=== PATIENT | female | born 1960 | race Caucasian/White ===

== ENCOUNTER → 2017-07-04 | Outpatient (REF) | payer OTHER, MEDICAID ==
[2017-07-04 14:18] LABS: ALBUMIN 3.4 GM/DL (3.2-5.2); ALBUMIN/GLOBULIN RATIO 0.87 (1.00-1.93); ALKALINE PHOSPHATASE 58 U/L (45-117); ALT/SGPT 22 U/L (12-78); ANION GAP 8 MEQ/L (8-16); AST/SGOT 14 U/L (7-37); BILIRUBIN,TOTAL 0.8 MG/DL (0.2-1.0); BLOOD UREA NITROGEN 16 MG/DL (7-18); CALCIUM LEVEL 8.7 MG/DL (8.5-10.1); CARBON DIOXIDE LEVEL 24 MEQ/L (21-32); CHLORIDE LEVEL 108 MEQ/L (98-107); CHOLESTEROL LEVEL 190 MG/DL (<200); CHOLESTEROL RISK RATIO 3.958 (<5); CREATININE FOR GFR 0.86 MG/DL (0.55-1.02); GLOMERULAR FILTRATION RATE > 60.0 (>51); GLUCOSE, FASTING 288 MG/DL (70-105); HDL CHOLESTEROL 48 MG/DL (>40); NON-HDL-C 142 MG/DL; POTASSIUM SERUM 4.2 MEQ/L (3.5-5.1); SODIUM LEVEL 140 MEQ/L (136-145); THYROID STIMULATING HORMONE 0.474 uIU/ML (0.358-3.740); TOTAL PROTEIN 7.3 GM/DL (6.4-8.2); TRIGLYCERIDES LEVEL 150 MG/DL (<150)
[2017-07-04 14:56] LABS: ESTIMATED AVERAGE GLUCOSE 269 MG/DL (60-110)
== END ==
LOC: M LAB REF 13:23
DX: E11.9 Type 2 diabetes mellitus without complications (principal); E55.9 Vitamin D deficiency, unspecified

== ENCOUNTER 2017-08-09 10:19 | Emergency (ER) | payer OTHER, MEDICAID ==
[2017-08-09] MEDS: LIDOCAINE 1% MDV 20ML VIAL SC (11:44)
== END 2017-08-09 12:30 | disposition home or self-care (01) ==
LOC: M ED 10:19
DX: L02.31 Cutaneous abscess of buttock (principal); J45.909 Unspecified asthma, uncomplicated; E11.9 Type 2 diabetes mellitus without complications; E78.00 Pure hypercholesterolemia, unspecified; Z79.899 Other long term (current) drug therapy; Z79.82 Long term (current) use of aspirin; Z79.4 Long term (current) use of insulin; Z88.0 Allergy status to penicillin; Z88.1 Allergy status to other antibiotic agents; Z88.2 Allergy status to sulfonamides; Z88.5 Allergy status to narcotic agent; F17.210 Nicotine dependence, cigarettes, uncomplicated
CPT/HCPCS: 87186

== ENCOUNTER → 2017-11-30 | Outpatient (REF) | payer OTHER, MEDICAID ==
[2017-11-30 19:02] LABS: ESTIMATED AVERAGE GLUCOSE 237 MG/DL (60-110); HEMOGLOBIN A1c 9.9 %
[2017-11-30 19:07] LABS: ALBUMIN 3.6 GM/DL (3.2-5.2); ALKALINE PHOSPHATASE 66 U/L (45-117); ALT/SGPT 21 U/L (12-78); ANION GAP 7 MEQ/L (8-16); AST/SGOT 9 U/L (7-37); BILIRUBIN,TOTAL 0.8 MG/DL (0.2-1.0); BLOOD UREA NITROGEN 11 MG/DL (7-18); CALCIUM LEVEL 8.6 MG/DL (8.5-10.1); CARBON DIOXIDE LEVEL 24 MEQ/L (21-32); CHLORIDE LEVEL 110 MEQ/L (98-107); CHOLESTEROL LEVEL 185 MG/DL (<200); CHOLESTEROL RISK RATIO 4.625 (<5); CREATININE FOR GFR 0.88 MG/DL (0.55-1.30); GLOMERULAR FILTRATION RATE > 60.0 (>51); GLUCOSE, FASTING 268 MG/DL (70-100); HDL CHOLESTEROL 40 MG/DL (>40); LDL CHOLESTEROL 122.2 MG/DL (<100); NON-HDL-C 145 MG/DL; POTASSIUM SERUM 3.8 MEQ/L (3.5-5.1); SODIUM LEVEL 141 MEQ/L (136-145); THYROID STIMULATING HORMONE 0.627 uIU/ML (0.358-3.740); TOTAL PROTEIN 7.2 GM/DL (6.4-8.2); TRIGLYCERIDES LEVEL 114 MG/DL (<150)
== END ==
LOC: M LAB REF 17:53
DX: E11.9 Type 2 diabetes mellitus without complications (principal)

== ENCOUNTER → 2018-03-11 | Outpatient (CLI) | payer OTHER ==
[2018-03-11 11:05] LABS: HEPATITIS B SURFACE ANTIBODY NEGATIVE (POSITIVE)
[2018-03-11 11:15] LABS: HEPATITIS B SURFACE ANTIGEN NEGATIVE (NEGATIVE)
[2018-03-11 11:44] LABS: HEPATITIS C VIRUS ABY INDEX 0.1 INDEX (<0.8)
[2018-03-11 15:03] LABS: ALBUMIN 3.5 GM/DL (3.2-5.2); ALKALINE PHOSPHATASE 63 U/L (45-117); ALT/SGPT 21 U/L (12-78); ANION GAP 8 MEQ/L (8-16); AST/SGOT 15 U/L (7-37); BILIRUBIN,TOTAL 0.5 MG/DL (0.2-1.0); BLOOD UREA NITROGEN 18 MG/DL (7-18); CALCIUM LEVEL 9.3 MG/DL (8.5-10.1); CARBON DIOXIDE LEVEL 26 MEQ/L (21-32); CHLORIDE LEVEL 112 MEQ/L (98-107); GLOMERULAR FILTRATION RATE > 60.0 (>51); GLUCOSE, FASTING 101 MG/DL (70-100); POTASSIUM SERUM 4.3 MEQ/L (3.5-5.1); SODIUM LEVEL 146 MEQ/L (136-145); TOTAL PROTEIN 7.1 GM/DL (6.4-8.2); TRIGLYCERIDES LEVEL 103 MG/DL (<150)
[2018-03-11 17:01] LABS: CHOLESTEROL LEVEL 172 MG/DL (<200); CHOLESTEROL RISK RATIO 3.245 (<5); HDL CHOLESTEROL 53 MG/DL (>40); LDL CHOLESTEROL 98.4 MG/DL (<100); NON-HDL-C 119 MG/DL
[2018-03-11 17:02] LABS: ALBUMIN/GLOBULIN RATIO 0.97 (1.00-1.93)
[2018-03-11 17:22] LABS: THYROID STIMULATING HORMONE 0.744 uIU/ML (0.358-3.740)
== END ==
LOC: M LAB 09:42
DX: Z00.00 Encounter for general adult medical examination without abnormal findings (principal); E11.9 Type 2 diabetes mellitus without complications
CPT/HCPCS: 84443

== ENCOUNTER → 2018-03-14 | Outpatient (CLI) | payer OTHER | LOC: M WHC 07:59 | DX: Z12.31 Encounter for screening mammogram for malignant neoplasm of breast (principal) | CPT/HCPCS: 77067 ==

== ENCOUNTER 2018-04-11 11:25 | Emergency (ER) | payer OTHER ==
[2018-04-11] MEDS: ALBUTEROL SULFATE 2.5 MG/0.5 ML INH NEB SOLN NEB ×2 (13:03)
== END 2018-04-11 13:45 | disposition home or self-care (01) ==
LOC: M ED 11:25
DX: J45.901 Unspecified asthma with (acute) exacerbation (principal); E11.9 Type 2 diabetes mellitus without complications; K21.9 Gastro-esophageal reflux disease without esophagitis; F33.9 Major depressive disorder, recurrent, unspecified; F41.9 Anxiety disorder, unspecified; Z88.5 Allergy status to narcotic agent; Z88.1 Allergy status to other antibiotic agents; Z88.0 Allergy status to penicillin; Z88.2 Allergy status to sulfonamides; Z79.899 Other long term (current) drug therapy; Z79.82 Long term (current) use of aspirin; Z79.84 Long term (current) use of oral hypoglycemic drugs
CPT/HCPCS: 71046

== ENCOUNTER 2018-05-03 05:21 | Emergency (ER) | payer OTHER | END 2018-05-03 07:54 | disposition home or self-care (01) | LOC: M ED 05:21 | DX: J00 Acute nasopharyngitis [common cold] (principal); E11.9 Type 2 diabetes mellitus without complications; E78.00 Pure hypercholesterolemia, unspecified; J45.909 Unspecified asthma, uncomplicated; K21.9 Gastro-esophageal reflux disease without esophagitis; F41.9 Anxiety disorder, unspecified; F31.9 Bipolar disorder, unspecified; Z72.0 Tobacco use; Z79.82 Long term (current) use of aspirin; Z79.84 Long term (current) use of oral hypoglycemic drugs; Z79.899 Other long term (current) drug therapy; Z88.5 Allergy status to narcotic agent; Z88.0 Allergy status to penicillin; Z88.2 Allergy status to sulfonamides; Z88.1 Allergy status to other antibiotic agents | CPT/HCPCS: 87880 ==

== ENCOUNTER 2018-06-17 07:48 | Day surgery (SDC) | payer OTHER ==
[~2018-06-17] VITALS: Ht 160 cm; Wt 89.8 kg
[~2018-06-17 07:48] MED LIST: ADV250INH; ALBU83IN NEB; ASPI81TA52 PO; ATOR40TA75 PO; BASA100I SQ; BREO1INH INH; CLEO300C2 PO; CLON-412 PO; CYCL10TA PO; DOXY100C37 PO; FLON1SPR NARES; GABA-1171 PO; MAGICMW MT; METF10004 PO; METO1TAB87 PO; NALT50TA4; NEBUMIS2 XX; OMEP20CA3 PO; PRED20TA PO; ROPI0.5T PO; SERT25TA88 PO; TRAZ-160 PO; VENTAER
[2018-06-17] MEDS ORDERED: NS 1,000 ML IV ONE (08:30)
[2018-06-17] MEDS ORDERED: LIDOCAINE 2% INJ 100 MG/5 ML SDV (FOR ANES.) As Ordered ONE (09:26)
[2018-06-17] MEDS ORDERED: PROPOFOL 200 MG/20 ML VIAL As Ordered ONE (09:26)
--- NOTE | 2018-06-17 09:31 | ROOR ---
Patient Name: Marychuy Russell Procedure Date: 06/17/2018 9:14 AM Date of : 1960 Age: 57 Room: [facility] Gender: Female Note Status: Finalized Procedure: Colonoscopy Indications: Screening for colorectal malignant neoplasm Providers: Juan CASTANEDA MD Referring MD: Chester GIFFORD MD Requesting Provider: Medicines: Monitored Anesthesia Care Complications: No immediate complications. Procedure: Pre-Anesthesia Assessment: - The heart rate, respiratory rate, oxygen saturations, blood pressure, adequacy of pulmonary ventilation, and response to care were monitored throughout the procedure. The Colonoscope was introduced through the anus and advanced to the cecum, identified by appendiceal orifice and ileocecal valve. The colonoscopy was performed without difficulty. The patient tolerated the procedure well. The quality of the bowel preparation was adequate. Findings: The perianal and digital rectal examinations were normal. Mild sigmoid diverticulosis and moderate internal hemorrhoids. The entire examined colon appeared normal on direct and retroflexion views. Retroflexion in the right colon was performed. Impression: - Mild sigmoid diverticulosis and moderate internal hemorrhoids. - The entire colon is otherwise normal on direct and retroflexion views. - No specimens collected. Recommendation: - Repeat colonoscopy in 10 years for screening purposes. Juan Castaneda MD Juan CASTANEDA MD 06/17/2018 9:31:32 AM This report has been signed electronically. Number of Addenda: 0 Note Initiated On: 06/17/2018 9:14 AM Estimated Blood Loss: Estimated blood loss: none.
[2018-06-17 09:50] VITALS: BP 120/62
== END 2018-06-17 09:57 | disposition home or self-care (01) ==
LOC: M OPP 07:48
PROVIDERS: ATTEND Internal Medicine Gastroenterology
DX: K57.30 Diverticulosis of large intestine without perforation or abscess without bleeding (principal); K64.8 Other hemorrhoids; Z12.11 Encounter for screening for malignant neoplasm of colon

== ENCOUNTER → 2018-11-06 | Outpatient (REF) | payer OTHER ==
[2018-11-06 11:16] LABS: CHOLESTEROL RISK RATIO 4.244 (<5)
[2018-11-06 11:32] LABS: CREATININE, URINE 79.3 MG/DL; MAU/CREAT RATIO 8.8 MCG/MG (0.0-30.0)
[2018-11-06 11:44] LABS: HEMOGLOBIN A1c 9.8 %
== END ==
LOC: M SFHCPLAZ 08:33
PROVIDERS: ATTEND Family Medicine
DX: E11.8 Type 2 diabetes mellitus with unspecified complications (principal)

== ENCOUNTER 2018-11-12 15:01 | Emergency (ER) | payer OTHER ==
[~2018-11-12] VITALS: Ht 157.5 cm; Wt 90.9 kg
[2018-11-12] MEDS ORDERED: SERT-138 (15:09)
[2018-11-12] MEDS ORDERED: OMEP-218 (15:09)
[2018-11-12] MEDS ORDERED: SIMV40TA2 (15:09)
[2018-11-12] MEDS ORDERED: CYCL10TA (15:09)
[2018-11-12] MEDS ORDERED: IBUPROFEN 600 MG TAB PO ONE (16:00)
[2018-11-12 16:41] VITALS: BP 141/85
--- NOTE | 2018-11-12 17:04 | REP ---
CT ORBITS WITHOUT CONTRAST: HISTORY: Trauma. The globes, optic nerves and rectus muscles are normal in appearance. There is a focal area of dehiscence in the medial wall of the right orbit. There is no orbital lesion. The visualized sinuses are clear. There is no fracture. Minimal soft-tissue swelling is present overlying the right orbit and nasal bones. IMPRESSION:There is no orbital lesion. Electronically Signed by Xiang Waters MD 11/13/2018 08:12 A
== END 2018-11-12 16:54 | disposition home or self-care (01) ==
LOC: M ED 15:01
DX: S01.81XA Laceration without foreign body of other part of head, initial encounter (principal); S00.11XA Contusion of right eyelid and periocular area, initial encounter; W01.0XXA Fall on same level from slipping, tripping and stumbling without subsequent striking against object, initial encounter; Y92.240 Courthouse as the place of occurrence of the external cause; E11.9 Type 2 diabetes mellitus without complications; Z79.899 Other long term (current) drug therapy; Z79.4 Long term (current) use of insulin; Z88.0 Allergy status to penicillin; Z88.1 Allergy status to other antibiotic agents; Z88.2 Allergy status to sulfonamides; Z88.5 Allergy status to narcotic agent; F17.210 Nicotine dependence, cigarettes, uncomplicated

== ENCOUNTER → 2018-12-20 | Outpatient (CLI) | payer OTHER ==
[~2018-12-20] MED LIST changes: +CYCL10TA; +MUCI600T31; +OMEP-218; +PRED10TA2; +SERT-138; +SIMV40TA2; -TRAZ-160 PO; +TRAZ-252 PO
--- NOTE | 2018-12-20 11:37 | REP ---
PELVIC ULTRASOUND: Real-time sonographic evaluation of the pelvis performed utilizing transabdominal and endovaginal technique. The bladder measures 5.2 x 3.5 x 4.5 cm. Uterus measures 5.8 x 2.1 x 2.2 cm. Endometrium is quite ill-defined and difficult to measure. Junctional zone is not well visualized. Best estimate of endometrial thickness is 3-5 mm. There is no endometrial fluid collection. Ovaries appear normal in size and echotexture, right ovary measuring 1.2 x 0.6 x 1.0 cm and left ovary 1.6 x 1.2 x 1.4 cm. There is no adnexal mass or free fluid. IMPRESSION: Ill-defined endometrium, borders are not well visualized, nor is the junctional zone. Best estimate at endometrial thickness is between 3 and 5 mm. There is no endometrial fluid collection. Findings could indicate adenomyosis. Other underlying neoplasm cannot be excluded. Consider endometrial sampling. Electronically Signed by Gasper Clemons MD 12/20/2018 12:08 P
== END ==
LOC: M RAD 10:06
PROVIDERS: ATTEND Student in an Organized Health Care Education/Training Program
DX: N95.0 Postmenopausal bleeding (principal)

== ENCOUNTER → 2018-12-20 | Outpatient (REF) | payer OTHER ==
[2018-12-20 14:49] LABS: CHLAMYDIA DNA AMPLIFICATION NEGATIVE (NEGATIVE); GC DNA AMPLIFICATION NEGATIVE (NEGATIVE)
== END ==
LOC: M SFHCPLAZ 11:40
PROVIDERS: ATTEND Student in an Organized Health Care Education/Training Program
DX: N76.0 Acute vaginitis (principal)

== ENCOUNTER 2018-12-23 14:56 | Emergency (ER) | payer OTHER ==
[~2018-12-23] VITALS: Ht 157.5 cm; Wt 90.0 kg
[~2018-12-23 14:56] MED LIST changes: -MUCI600T31; -PRED10TA2
[2018-12-23] MEDS ORDERED: PRED10TA2 (15:07)
[2018-12-23] MEDS ORDERED: MUCI600T31 (15:07)
[2018-12-23 15:46] LABS: BASO # 0.1 10^3/uL (0.0-0.2); BASO % 0.4 % (0.0-1.0); EOS # 0.1 10^3/uL (0.0-0.50); EOS % 0.7 % (0.0-3.0); HEMATOCRIT 44.1 % (36.0-47.0); LYMPH # 3.7 10^3/uL (1.5-4.5); LYMPH % 25.5 % (24.0-44.0); MEAN CORPUSCULAR HEMOGLOBIN 30.9 pg (27.0-33.0); MEAN CORPUSCULAR VOLUME 90.7 fl (80.0-96.0); MONO # 0.9 10^3/uL (0.0-0.8); MONO % 5.9 % (0.0-5.0); NEUTROPHILS # 9.7 10^3/uL (1.8-7.7); NEUTROPHILS % 66.9 % (36.0-66.0); PLATELET COUNT, AUTOMATED 178 10^3/uL (150-450); RED BLOOD COUNT 4.86 10^6/uL (4.00-5.40); WHITE BLOOD COUNT 14.5 10^3/uL (4.0-10.0)
[2018-12-23 16:19] LABS: CALCIUM LEVEL 8.5 MG/DL (8.5-10.1); CREATININE FOR GFR 1.05 MG/DL (0.55-1.30); GLOMERULAR FILTRATION RATE 57.3 (>51); POTASSIUM SERUM 3.6 MEQ/L (3.5-5.1)
--- NOTE | 2018-12-23 16:27 | REP ---
Duplex extremity venous ultrasound: Right lower extremity. History: Right leg pain. Rule out DVT. Findings: The deep veins are anechoic and fully compressible from the groin to the popliteal fossa in the right lower extremity. Color flow imaging is homogeneous. Spectral Doppler interrogation demonstrates intact respiratory variation in flow and normal manual augmentation of flow. There is no evidence of deep vein thrombosis. Impression: Negative right lower extremity duplex venous ultrasound. No evidence of deep vein thrombosis. Electronically Signed by Renan Morales MD 12/23/2018 04:19 P
[2018-12-23] MEDS ORDERED: ISOVUE-370 76% 100ML VIAL (Q9967) As Ordered ONE (17:10)
[2018-12-23] MEDS ORDERED: IBUPROFEN 600 MG TAB PO ONE (17:30)
[2018-12-23] MEDS ORDERED: IPRATROPIUM 0.5MG/ALBUTEROL 2.5MG INH SOL UD 3ML (DUONEB)(J7620) NEB PRN (17:30)
--- NOTE | 2018-12-23 17:51 | REP ---
Clinical: Chest pain. Rule out pulmonary embolus. Technique: Axial contrast enhanced images from the thoracic inlet to the upper abdomen with multiplanar re-formations using 100 ml Isovue 370 intravenous contrast material. Findings: Evaluation is somewhat limited due to respiratory motion artifact. While no definite acute pulmonary embolus is appreciated, subtle emboli to the lower lobes cannot definitively be excluded. The bilateral lung huizar are clear and without consolidation. No effusion or pneumothorax. Tracheobronchial tree is patent. Thoracic aorta is without aneurysm or dissection. The heart and pericardium appear grossly normal. No adenopathy. Musculoskeletal structures appear intact. Limited upper abdomen demonstrates diffuse fatty infiltration to the liver and normal bilateral adrenal glands. Impression: Limited evaluation without obvious acute pulmonary embolus identified. No acute pleuroparenchymal process appreciated. Electronically Signed by Charles Cole MD 12/23/2018 05:42 P
[2018-12-23 18:25] VITALS: BP 160/74
[2018-12-23] MEDS ORDERED: NS 1,000 ML IV ONE (18:30)
== END 2018-12-23 19:16 | disposition home or self-care (01) ==
LOC: M ED 14:56 → EDBD 14:56 → M ED 19:16
DX: M79.661 Pain in right lower leg (principal); M79.89 Other specified soft tissue disorders; R06.02 Shortness of breath; J44.9 Chronic obstructive pulmonary disease, unspecified; K21.9 Gastro-esophageal reflux disease without esophagitis; E11.9 Type 2 diabetes mellitus without complications; J45.909 Unspecified asthma, uncomplicated; E78.5 Hyperlipidemia, unspecified; F41.9 Anxiety disorder, unspecified; F32.9 Major depressive disorder, single episode, unspecified; R01.1 Cardiac murmur, unspecified; M19.90 Unspecified osteoarthritis, unspecified site; F17.210 Nicotine dependence, cigarettes, uncomplicated; Z82.49 Family history of ischemic heart disease and other diseases of the circulatory system; Z88.0 Allergy status to penicillin; Z88.1 Allergy status to other antibiotic agents; Z88.2 Allergy status to sulfonamides; Z88.5 Allergy status to narcotic agent; Z79.899 Other long term (current) drug therapy; Z79.4 Long term (current) use of insulin; Z79.51 Long term (current) use of inhaled steroids; Z79.52 Long term (current) use of systemic steroids
CPT/HCPCS: 71275; 80048; 81001; 83605; 83880; 85025; 85379; 87086; 93971; 94640; 94760; 99284; Q9967

== ENCOUNTER → 2019-01-15 | Outpatient (REF) | payer OTHER ==
[~2019-01-15] MED LIST changes: +MUCI600T31; -OMEP20CA3 PO; +OMEP20CA4 PO; +PRED10TA2
== END ==
LOC: M SFHCPLAZ 13:15
PROVIDERS: ATTEND Student in an Organized Health Care Education/Training Program
DX: N76.0 Acute vaginitis (principal)

== ENCOUNTER 2019-02-12 21:41 | Emergency (ER) | payer OTHER ==
[~2019-02-12] VITALS: Ht 157.5 cm; Wt 88.2 kg
[2019-02-13] MEDS ORDERED: KETOROLAC TROMETHAMINE 10 MG TAB PO ONE (01:30)
[2019-02-13 01:50] VITALS: BP 135/71
[2019-02-13] MEDS ORDERED: KETO10TAB PO (02:43)
--- NOTE | 2019-02-13 02:55 | REPVR ---
EXAM: US Duplex Left Lower Extremity Veins, Limited EXAM DATE/TIME: 02/13/2019 1:49 AM CLINICAL HISTORY: 58 years old, female; Pain; Foot; Left; Additional info: Left leg/foot pain without injury TECHNIQUE: Imaging protocol: Real-time Duplex ultrasound of the Left Lower Extremity with 2-D mercado scale, color Doppler flow and spectral waveform analysis with image documentation. Limited exam focused on the left lower extremity veins. COMPARISON: US Duplex, Ext,LOWER veins,unilat 12/23/2018 4:09 PM FINDINGS: Left deep veins: Unremarkable. The common femoral, femoral, proximal profunda femoral and popliteal veins are patent without thrombus. Normal Doppler waveforms. Normal compressibility and/or augmentation response. Left superficial veins: Unremarkable. Saphenofemoral junction is patent without thrombus. Soft tissues: Unremarkable. IMPRESSION: No acute findings. No evidence of deep vein thrombosis. Electronically signed by: Erica Woodward On 02/13/2019 02:54:51 AM
--- NOTE | 2019-02-13 08:31 | REP ---
Left foot series: Four views. History: Pain and swelling. Findings: There is an old healed oblique midshaft fracture of the fifth metatarsal. Overall mineralization pattern is normal. No acute fracture is appreciated. There are eight accessory navicular ossicles and there is an os perineum noted. Plantar and Achilles calcaneal spurring is visible. There is mild osteoarthritic spurring at the tibiotalar articulation. Impression: No acute bony abnormality. Electronically Signed by Renan Morales MD 02/13/2019 08:23 A
--- NOTE | 2019-02-13 08:52 | REP ---
Ankle series: Four views. History: Left ankle pain without injury. Findings: There is mild tibiotalar osteoarthritic spurring. There is an accessory ossicle adjacent to the medial malleolus. Dystrophic soft-tissue calcification is seen adjacent to the distal fibular dye metaphyseal region. The ankle mortise is intact. No erosive changes seen. Achilles and plantar calcaneal spurring are noted. Impression: Tibiotalar osteoarthritic spurring. Heel spurs. No acute bony abnormality. Electronically Signed by Renan Morales MD 02/13/2019 08:43 A
== END 2019-02-13 02:53 | disposition home or self-care (01) ==
LOC: M ED 21:41
DX: M25.572 Pain in left ankle and joints of left foot (principal); E11.40 Type 2 diabetes mellitus with diabetic neuropathy, unspecified; J45.909 Unspecified asthma, uncomplicated; J44.9 Chronic obstructive pulmonary disease, unspecified; E78.00 Pure hypercholesterolemia, unspecified; F31.9 Bipolar disorder, unspecified; F41.9 Anxiety disorder, unspecified; B02.9 Zoster without complications; Z87.891 Personal history of nicotine dependence; Z88.0 Allergy status to penicillin; Z88.2 Allergy status to sulfonamides; Z88.5 Allergy status to narcotic agent; Z88.1 Allergy status to other antibiotic agents; Z79.899 Other long term (current) drug therapy; Z79.4 Long term (current) use of insulin; Z79.51 Long term (current) use of inhaled steroids

== ENCOUNTER 2019-02-28 19:36 | Emergency (ER) | payer OTHER ==
[~2019-02-28] VITALS: Ht 157.5 cm; Wt 89.1 kg
[~2019-02-28 19:36] MED LIST changes: +KETO10TAB PO
[2019-02-28 19:51] VITALS: BP 158/79
--- NOTE | 2019-02-28 20:36 | REPVR ---
EXAM: US Duplex Right Lower Extremity Veins, Limited EXAM DATE/TIME: 02/28/2019 8:16 PM CLINICAL HISTORY: 58 years old, female; Pain; Leg, upper and leg, lower; Right TECHNIQUE: Imaging protocol: Real-time Duplex ultrasound of the Right Lower Extremity with 2-D mercado scale, color Doppler flow and spectral waveform analysis with image documentation. Limited exam was focused on the right lower extremity veins. COMPARISON: US Duplex, Ext,LOWER veins,unilat 12/23/2018 4:09 PM FINDINGS: Right deep veins: Unremarkable. The common femoral, femoral, proximal profunda femoral and popliteal veins are patent without thrombus. Normal Doppler waveforms. Normal compressibility and/or augmentation response. Right superficial veins: Unremarkable. Saphenofemoral junction is patent without thrombus. Soft tissues: Unremarkable. IMPRESSION: No acute findings. No evidence of deep vein thrombosis. Electronically signed by: Yeyo Muller On 02/28/2019 20:36:51 PM
[2019-02-28] MEDS ORDERED: TRAM50TA2 PO (20:54)
[2019-02-28] MEDS ORDERED: traMADol 50 MG TAB PO ONE (21:00)
== END 2019-02-28 21:12 | disposition home or self-care (01) ==
LOC: EDBD 19:36 → M ED 19:36
DX: I73.9 Peripheral vascular disease, unspecified (principal); E11.9 Type 2 diabetes mellitus without complications; E78.5 Hyperlipidemia, unspecified; K21.9 Gastro-esophageal reflux disease without esophagitis; J44.9 Chronic obstructive pulmonary disease, unspecified; J42 Unspecified chronic bronchitis; Z72.0 Tobacco use; Z79.4 Long term (current) use of insulin; Z79.899 Other long term (current) drug therapy; Z88.0 Allergy status to penicillin; Z88.2 Allergy status to sulfonamides; Z88.5 Allergy status to narcotic agent; Z88.1 Allergy status to other antibiotic agents

== ENCOUNTER → 2019-03-13 | Outpatient (CLI) | payer OTHER ==
[~2019-03-13] MED LIST changes: +TRAM50TA2 PO
--- NOTE | 2019-03-13 14:25 | REP ---
BILATERAL LOWER EXTREMITY DUPLEX DOPPLER ARTERIAL ULTRASOUND: Real-time ultrasound evaluation and duplex Doppler interrogation of the bilateral lower extremity arterial systems is performed. Triphasic waveforms are seen throughout the right lower extremity with monophasic waveforms in the distal anterior and posterior tibial arteries, possibly indicating some degree of stenosis more proximally in those arteries. There are triphasic waveforms in the left common femoral artery. There is occlusion of the proximal left superficial femoral artery. There is reconstitution of the mid left SFA, with monophasic waveforms seen in the mid to distal SFA as well as distal to that. There appears to be occlusion of the distal left anterior tibial artery. Right Peak Left Peak Systolic Velocity Systolic velocity Common femoral artery 92.9 cm/s 60.8 cm/s Profunda 49.2 cm/s 88.3 cm/s Proximal SFA 77.6 cm/s occluded Mid SFA 60.2 cm/s 21.1 cm/s Distal SFA 32.2 cm/s 18.7 cm/s Popliteal 23.7 cm/s 12.9 cm/s Proximal HOLLY 23.5 cm/s 12.4 cm/s Tibial peroneal trunk 32.4 cm/s 18.1 cm/s Proximal HAND CULTIVATOR 30.5 cm/s 19.2 cm/s Distal HAND CULTIVATOR 45.3 cm/s 15.4 cm/s Distal HOLLY 8.8 cm/s occluded IMPRESSION: Monophasic waveforms distal right anterior and posterior tibial arteries possibly indicating occlusion of the more proximal aspect of those arteries. There is occlusion of the left superficial femoral artery with reconstitution of the mid left SFA. There also appears to be occlusion of the distal left HOLLY. Electronically Signed by Gasper Clemons MD 03/13/2019 02:42 P
== END ==
LOC: M RAD 11:42
PROVIDERS: ATTEND Obstetrics & Gynecology
DX: I70.202 Unspecified atherosclerosis of native arteries of extremities, left leg (principal)

== ENCOUNTER → 2019-04-04 | Outpatient (CLI) | payer OTHER ==
[~2019-04-04] MED LIST changes: +ACETAMINOPHEN 325 MG TAB As Ordered ONE; +ACETAMINOPHEN 325 MG TAB PO ONE; +ACETAMINOPHEN TAB 650MG DOSE (2X325MG) PO ONE; +ASPI81TA26 PO; +CLOP75TA2 PO; +CLOPIDOGREL 75 MG TAB As Ordered ONE; +CLOPIDOGREL 75 MG TAB PO SCH; +CYCL7.5T50 PO; +HEPARIN 1,000 UNITS/ML 10ML VIAL (FOR RADIOLOGY& DIALYSIS ONLY) As Ordered ONE; +ISOVUE-300 61% 50ML VIAL (Q9967) As Ordered ONE; +LIDOCAINE 1% MDV 20ML VIAL As Ordered ONE; +MIDAZOLAM INJ 2 MG/2 ML VIAL (J2250) As Ordered ONE; +diphenhydrAMINE INJ 50MG/ML VIAL (J1200) As Ordered ONE; +fentaNYL 100 MCG/2 ML INJECTION (J3010) As Ordered ONE
[2019-04-04 11:58] LABS: HEMATOCRIT 45.5 % (36.0-47.0); HEMOGLOBIN 14.8 g/dl (12.0-15.5); MEAN CORPUSCULAR HEMOGLOBIN 30.1 pg (27.0-33.0); MEAN CORPUSCULAR HGB CONC 32.5 g/dl (32.0-36.5); MEAN CORPUSCULAR VOLUME 92.7 fl (80.0-96.0); PLATELET COUNT, AUTOMATED 166 10^3/uL (150-450); RED BLOOD COUNT 4.91 10^6/uL (4.00-5.40); WHITE BLOOD COUNT 10.1 10^3/uL (4.0-10.0)
[2019-04-04 12:43] LABS: BLOOD UREA NITROGEN 13 MG/DL (7-18); CALCIUM LEVEL 8.9 MG/DL (8.5-10.1); CARBON DIOXIDE LEVEL 30 MEQ/L (21-32); CHLORIDE LEVEL 106 MEQ/L (98-107); CREATININE FOR GFR 0.84 MG/DL (0.55-1.30); GLOMERULAR FILTRATION RATE > 60.0 (>51); GLUCOSE, FASTING 216 MG/DL (70-100); POTASSIUM SERUM 3.9 MEQ/L (3.5-5.1); SODIUM LEVEL 140 MEQ/L (136-145)
--- NOTE | 2019-04-04 14:21 | ROOPDOC ---
[facility] Report Of Operation Report of Operation DATE OF PROCEDURE: 04/04/19 PREPROCEDURE DIAGNOSES: Atherosclerosis of the [place] arteries with lifestyle limiting claudication POSTPROCEDURE DIAGNOSES: Same PROCEDURE: 1. Ultrasound-guided access right common femoral artery 2. Aorto iliofemoral arteriogram with selection and right common femoral artery and left lower extremity runoff 3. Selection left popliteal artery arteriogram 4. 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 Stenting left SFA from origin to distal with 6 x 150 innova stent and 6 x 100 and innova stent 6. Post-dilation was 6 x 200 [place] balloon 7. Angioplasty origin of the profunda with 4 x 40 [place] balloon 8. Completion arteriograms 9. Mynx closure right common femoral artery SURGEON: Cristal Bates MD ANESTHESIA: 6 mL lidocaine local anesthesia. Moderate intravenous conscious sedation was administered by Dr. Bates. The patient was independently monitored by a nurse assigned to the Department of radiology using automated blood pressure, EKG, and pulse oximetry. The detailed conscious sedation record is house permanently in the hospital information system. The following is the brief sedation record: Start time 13:25, stop time 13:49, Versed 1 mg IV, fentanyl 50 g IV, heparin 5000 units IV. INDICATION FOR PROCEDURE: Ms. Pettit is a very pleasant 85-year-old patient with atherosclerosis of the [place] arteries and lifestyle limiting claudication who is noninvasive study showed significant vascular disease bilaterally. 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 We discussed with her the risks benefits and alternatives to an arteriogram in an attempt to open her superficial femoral artery and possibly treat her tibial disease also, and if we are unsuccessful across her occlusion in the SFA we would likely recommend femoral above-knee popliteal bypass. The patient was agreeable to proceed with an arteriogram first to see if endovascular intervention could be performed. Regarding her right lower extremity, it is not as severe if symptoms of the left, so we will address this at a later date. Informed consent was obtained. INTERPRETATION: 1. The distal aortic inflow into the iliac system is widely patent, and the common iliac artery hypogastric external iliac artery are widely patent. 2. The left common femoral artery is widely patent and there is some mild disease of the origin of the profunda, but there is a flush occlusion of the superficial femoral artery with reconstitution at Kunal's canal from collaterals from the profunda. The popliteal artery is patent, and runs often to 2 vessels, the anterior tibial artery and peroneal artery. The posterior tibial artery is occluded at its origin and does not reconstitute. There is some distal small vessel disease at the ankle, but flow continues distal to this due to extensive collaterals at the ankle and the foot is perfused. 3. After crossing the chronic total occlusion in the left SFA, angioplasty provided some improvement in flow but there was still significant irregular flow limiting plaque throughout. After stenting the area and post dilating, no residual stenosis remained. 4. Angioplasty of the origin of the profunda provided improved inflow to the thigh as well. REPORT OF OPERATION: Patient was brought to the angiographic suite in stable condition. Her bilateral groins were prepped and draped in a sterile fashion. An timeout was performed. Sedation was administered without complication. Her right groin was anesthetized with lidocaine and a microneedle was used to access the right common femoral artery over the femoral head under ultrasound guidance. A wire was passed through this access and a micro-sheath was placed. Through this Glidewire was advanced into the infrarenal aorta fluoroscopic guidance and a 6 Wolof sheath was placed and flushed with saline. Aortoiliofemoral arteriograms were performed and these proximal inflow segments are widely patent. We then went up and over the bifurcation with R catheter and Glidewire and with a little bit of effort I was able to cross into the occluded superficial femoral artery. We then exchanged the short 6 Wolof sheath for an open over 45 cm 6 Wolof sheath and flushes sheath with saline. A Gleich cath was then advanced over the wire and the wire and the glide cath were used across the entire occlusion in the SFA. Once in the popliteal artery. A quick selection arteriogram was performed to make sure we were in the true lumen. After this was confirmed, we did three-minute low inflation angioplasties across the SFA with a 6 x 200 [place] balloon. There was still residual stenosis plaque and altogether this w as significantly flow-limiting. Therefore we selected a 6 x 150 cm self- expanding stent and deployed this distally from Kunal's canal to the proximal SFA, and then selected a 6 x 100 cm self-expanding stent and placed this with overlap to the origin of the SFA. We postoperatively limited with a 6 x 200 balloon and there was widely patent flow after angioplasty and stenting. No ext ravasation no embolization of dissection were noted. We then navigated R wire into the origin the profunda and angioplasty the origin the profunda with a 4 x 40 [place] balloon which dramatically improved inflow to the profunda. Arteriograms were then performed below the knee and we noted good flow through the popliteal and tibioperoneal trunk and the peroneal artery with a flush o cclusion of the posterior tibial artery that does not reconstitute at the ankle. The anterior tibial artery was also widely patent. There was some disease in the very distal anterior tibial artery at the ankle, but flow proceeded distal to this and there was good perfusion to the foot, therefore we did not angioplasty this distal small segment at this time. This concluded our procedure. Our sheath was exchanged for a short 6 Wolof sheath in the right common femoral artery and the makes closure device was deployed with good hemostasis. Pressure was held for 10 minutes and the patient was taken to recovery in stable condition. She to lerated the procedure and the sedation well. ESTIMATED BLOOD LOSS: Approximately 5 mL. COMPLICATIONS: None. PLAN: The patient will be monitored 4 hours postprocedure and discharged home in stable condition and no hematoma the right groin. We will see her back in clinic within the week to check her access site in her perfusion in the left lower extremity. She will be started on Plavix today will go home with a prescription for Plavix for 60 days. CRISTAL BATES MD Apr 04, 2019 14:21
[2019-04-04 17:15] VITALS: BP 146/82
== END ==
LOC: M IRPRO 11:16
PROVIDERS: ATTEND Surgery Vascular Surgery
DX: I70.213 Atherosclerosis of native arteries of extremities with intermittent claudication, bilateral legs (principal); I70.92 Chronic total occlusion of artery of the extremities
CPT/HCPCS: 37226; 75716; 75774; 80048; 85027; 99152; 99153; C1725; C1760; C1769; C1876; C1887; C1894; J2250; J3010; Q9967

== ENCOUNTER → 2019-04-18 | Outpatient (REF) | payer OTHER ==
[~2019-04-18] MED LIST changes: -ACETAMINOPHEN 325 MG TAB As Ordered ONE; -ACETAMINOPHEN 325 MG TAB PO ONE; -ACETAMINOPHEN TAB 650MG DOSE (2X325MG) PO ONE; -CLOPIDOGREL 75 MG TAB As Ordered ONE; -CLOPIDOGREL 75 MG TAB PO SCH; -HEPARIN 1,000 UNITS/ML 10ML VIAL (FOR RADIOLOGY& DIALYSIS ONLY) As Ordered ONE; -ISOVUE-300 61% 50ML VIAL (Q9967) As Ordered ONE; -LIDOCAINE 1% MDV 20ML VIAL As Ordered ONE; -MIDAZOLAM INJ 2 MG/2 ML VIAL (J2250) As Ordered ONE; +SERT25TA21 PO; -SERT25TA88 PO; -diphenhydrAMINE INJ 50MG/ML VIAL (J1200) As Ordered ONE; -fentaNYL 100 MCG/2 ML INJECTION (J3010) As Ordered ONE
== END ==
LOC: M SFHCPLAZ 08:27
PROVIDERS: ATTEND Family Medicine
DX: E11.8 Type 2 diabetes mellitus with unspecified complications (principal)

== ENCOUNTER 2019-04-23 15:15 | Day surgery (SDC) | payer OTHER ==
[~2019-04-23] VITALS: Ht 157.5 cm; Wt 88.8 kg
[~2019-04-23 15:15] MED LIST changes: +LR 1,000 ML IV ONE
[2019-04-23 16:09] LABS: HEMATOCRIT 42.9 % (36.0-47.0); HEMOGLOBIN 13.9 g/dl (12.0-15.5); MEAN CORPUSCULAR HEMOGLOBIN 29.6 pg (27.0-33.0); MEAN CORPUSCULAR HGB CONC 32.4 g/dl (32.0-36.5); MEAN CORPUSCULAR VOLUME 91.5 fl (80.0-96.0); PLATELET COUNT, AUTOMATED 219 10^3/uL (150-450); RED BLOOD COUNT 4.69 10^6/uL (4.00-5.40)
[2019-04-23] MEDS ORDERED: PROPOFOL 200 MG/20 ML VIAL As Ordered ONE (16:39)
[2019-04-23] MEDS ORDERED: dexameTHASONE 4 MG/ML 1ML VIAL (J1100) As Ordered ONE (16:39)
[2019-04-23] MEDS ORDERED: LIDOCAINE 2% INJ 100 MG/5 ML SDV (FOR ANES.) As Ordered ONE (16:39)
[2019-04-23] MEDS ORDERED: ONDANSETRON 4MG/2ML VIAL (J2405) As Ordered ONE (16:39)
[2019-04-23] MEDS ORDERED: fentaNYL 100 MCG/2 ML INJECTION (J3010) As Ordered ONE (16:40)
[2019-04-23] MEDS ORDERED: MIDAZOLAM INJ 2 MG/2 ML VIAL (J2250) As Ordered ONE (16:41)
[2019-04-23] MEDS ORDERED: ALBUTEROL 6.7GM INHALER **FOR ANES. CART/OMNICELL ONLY As Ordered ONE (18:12)
[2019-04-23] MEDS ORDERED: fentaNYL 100 MCG/2 ML INJECTION (J3010) IV PRN (19:00)
[2019-04-23] MEDS ORDERED: PERCOCET 5MG/325MG TAB PO PRN (19:00)
[2019-04-23] MEDS ORDERED: LR 1,000 ML IV SCH ×2 (19:00)
[2019-04-23] MEDS ORDERED: ACETAMINOPHEN 500 MG TAB PO ONE (19:00)
[2019-04-23] MEDS ORDERED: ONDANSETRON 4MG/2ML VIAL (J2405) IV PRN (19:00)
[2019-04-23] MEDS ORDERED: METOCLOPRAMIDE INJ 10MG/2ML VIAL (J2765) IV PRN (19:00)
[2019-04-23 19:40] VITALS: BP 115/74
--- NOTE | 2019-04-24 08:04 | RO ---
DATE OF OPERATION: 04/23/2019 PREOPERATIVE DIAGNOSIS: Postmenopausal bleeding. POSTOPERATIVE DIAGNOSIS: Postmenopausal bleeding. PROCEDURE: Hysteroscopy, dilatation and curettage. SURGEON: Xiang Mae MD WAREHOUSE SHIPPING CLERK: ANESTHESIA: General endotracheal. ESTIMATED BLOOD LOSS: 5 mL. FINDINGS: Atrophic appearing endometrium. OPERATIVE SUMMARY: Patient was taken to the operating room where general endotracheal anesthesia was induced. She was prepped and draped in a sterile fashion in the dorsal lithotomy position. Bladder was emptied with a catheter. Speculum was placed in the vagina. Anterior lip of the cervix was grasped with tenaculum. The cervix was dilated with tapered dilators. A diagnostic hysteroscope using normal saline as a distention media was placed through the internal os. Visualization of the endometrial cavity revealed the findings noted above. The hysteroscope was removed. Sharp curettage was performed. Specimens sent to pathology. All instrument were removed. Sponge and instrument counts were correct.
[2019-04-25] MEDS ORDERED: TRUL10IN SC (08:45)
== END 2019-04-23 20:10 | disposition home or self-care (01) ==
LOC: M SDC 15:15
PROVIDERS: ATTEND Specialist
DX: N95.0 Postmenopausal bleeding (principal); J44.9 Chronic obstructive pulmonary disease, unspecified; E78.5 Hyperlipidemia, unspecified; E11.9 Type 2 diabetes mellitus without complications; F41.9 Anxiety disorder, unspecified; F32.9 Major depressive disorder, single episode, unspecified; Z87.891 Personal history of nicotine dependence; Z79.899 Other long term (current) drug therapy; Z79.02 Long term (current) use of antithrombotics/antiplatelets; Z88.5 Allergy status to narcotic agent; Z88.2 Allergy status to sulfonamides; Z79.84 Long term (current) use of oral hypoglycemic drugs; Z88.0 Allergy status to penicillin
CPT/HCPCS: 36415; 58558; 85027; 88305; J1100; J2250; J2405; J3010

== ENCOUNTER → 2019-04-28 | Outpatient (CLI) | payer OTHER ==
[~2019-04-28] MED LIST changes: +CLOPIDOGREL 75 MG TAB As Ordered ONE; +HEPARIN 1,000 UNITS/ML 10ML VIAL (FOR RADIOLOGY& DIALYSIS ONLY) As Ordered ONE; +IPRATROPIUM 0.5MG/ALBUTEROL 2.5MG INH SOL UD 3ML (DUONEB)(J7620) NEB ONE; +ISOVUE-300 61% 50ML VIAL (Q9967) As Ordered ONE; +LIDOCAINE 1% MDV 20ML VIAL As Ordered ONE; -LR 1,000 ML IV ONE; +MIDAZOLAM INJ 2 MG/2 ML VIAL (J2250) As Ordered ONE; +TRUL10IN SC; +diphenhydrAMINE INJ 50MG/ML VIAL (J1200) As Ordered ONE; +fentaNYL 100 MCG/2 ML INJECTION (J3010) As Ordered ONE
[2019-04-28 07:20] LABS: HEMATOCRIT 43.1 % (36.0-47.0); HEMOGLOBIN 14.1 g/dl (12.0-15.5); MEAN CORPUSCULAR HEMOGLOBIN 30.3 pg (27.0-33.0); MEAN CORPUSCULAR HGB CONC 32.7 g/dl (32.0-36.5); MEAN CORPUSCULAR VOLUME 92.7 fl (80.0-96.0); PLATELET COUNT, AUTOMATED 213 10^3/uL (150-450); RED BLOOD COUNT 4.65 10^6/uL (4.00-5.40); WHITE BLOOD COUNT 10.3 10^3/uL (4.0-10.0)
[2019-04-28 07:40] LABS: BLOOD UREA NITROGEN 13 MG/DL (7-18); CALCIUM LEVEL 9.1 MG/DL (8.5-10.1); CARBON DIOXIDE LEVEL 27 MEQ/L (21-32); CHLORIDE LEVEL 111 MEQ/L (98-107); CREATININE FOR GFR 0.86 MG/DL (0.55-1.30); GLOMERULAR FILTRATION RATE > 60.0 (>51); GLUCOSE, FASTING 148 MG/DL (70-100); POTASSIUM SERUM 4.1 MEQ/L (3.5-5.1); SODIUM LEVEL 144 MEQ/L (136-145)
[2019-04-28 12:38] VITALS: BP 146/76
--- NOTE | 2019-05-05 15:55 | ROOPDOC ---
[facility] Report Of Operation Report of Operation DATE OF PROCEDURE: 04/28/19 PREPROCEDURE DIAGNOSES: Atherosclerosis of the [place] arteries with lifestyle limiting claudication right lower extremity POSTPROCEDURE DIAGNOSES: Same PROCEDURE: 1. Ultrasound-guided access left common femoral artery 2. Right lower extremity arteriogram with selection right common femoral, right popliteal, right anterior tibial, and right dorsal pedis arteries. 3. Cross chronic total occlusion distal right anterior tibial artery and proximal dorsal pedis artery and angioplasty with 2 x 220 Abdiel balloon 4. Completion arteriograms 5. Mynx closure left common femoral artery SURGEON: Cristal Bates MD ANESTHESIA: Local anesthesia 10 mL lidocaine. Monitored intravenous conscious sedation was administered by Dr. Bates. The patient was also independently monitored by registered nurse assigned to the department of radiology. The detailed conscious sedation record is permanently house in the hospital information system. The following is the brief sedation record: Start time 07:58, stop time 08:49, Versed 1 mg IV, fentanyl 50 g IV, Benadryl 25 mg IV, heparin 5000 units IV. CONTRAST: 39 mL Isovue INDICATION FOR PROCEDURE: Ms. Russell is a very pleasant 58-year-old patient who underwent angioplasty and stenting of her occluded left SFA and tibial angioplasty a few weeks ago, and has done very well from that standpoint. However, now that the left leg is improved, she's noticed more claudication sy mptoms in the right leg. She is trying to lose weight and exercise and walk more frequently, and this has made it difficult. She also needs to do pulmonary function testing, and they would like her to be on a treadmill, so she is hopeful that we'll be able to improve flow in the right lower extremity so she can do her testing successfully. We went over the risks benefits and altern atives to right lower extremity arteriogram and possible intervention and she was agreeable to proceed. Informed consent was obtained. INTERPRETATION: 1. The right common femoral and profunda are widely patent, and the SFA is a bit ectatic but of good diameter and no flow-limiting stenoses noted. 2. The popliteal artery is widely patent and has initial 3 vessel runoff with the main tibial runoff to the foot through the posterior tibial artery. The peroneal is widely patent but diminutive in size. The anterior tibial artery occludes in the proximal calf it is difficult to see if it reconstitutes at the dorsal pedis although there are some collaterals from the peroneal that appeared to fill. 3. After crossing the occlusion into the dorsal pedis artery, multiple angioplasties with a 2 x 2 120 balloon provided sluggish but in-line flow through the anterior tibial artery giving her three vessel runoff to the foot. No embolization, extravasation, or dissection was noted. REPORT OF OPERATION: The patient was brought to the angiographic suite in stable condition. Her bilateral groins were prepped and draped in a sterile fashion. A timeout was performed. Sedation was administered without complication. Local anesthesia was administered to the skin and subcutaneous tissue over the left common femoral artery, and the artery was accessed with a microneedle under ultrasound guidance. A wire was passed through this access under fluoroscopic guidance and a micro-sheath was placed. Through this sheath, we advanced a Glidewire into the aorta under fluoroscopic guidance, and a 6 [place] sheath was placed and flushed with saline. We then went up and over the bifurcation with an Omni flash catheter and the Glidewire was selection of the common femoral artery. Proximal arteriograms were performed please see interpretation above. We then advanced the catheter over the wire into the superficial femoral artery and popliteal and tibial arteriograms were performed. Please see interpretation above. We then advanced a Glidewire into the popliteal artery under fluoroscopic guidance and exchanged R sheath for a 90 cm 6 [place] sheath and flushed the sheath with saline. We utilized a Glidewire and aquatic cath to access the anterior tibial artery and across the chronic total occlusion. A quick a rteriogram at the dorsal pedis artery confirm we were in the vessel. We'll exchange the wire for an O18 wire and advanced a 2 x 2 120 Abdiel balloon down to the distal anterior tibial artery. A three-minute inflations was performed, but at the ankle, the stenoses were resistant to angioplasty. We performed to additional angioplasties across the ankle into the dorsal pedis artery, but it was difficult to get the stenoses to release. Between each angioplasty, arteriograms showed still sluggish flow due to the limitation and outflow at the ankle. However, after 3 angioplasties, we did have 3 vessel runoff to the foot. There was no extravasation embolization or dissection. This concluded our procedure. We exchanged the wire for an O35 Glidewire and exchanged the sheath for a short 6 [place] sheath using a Seldinger technique. Sheath was flushed with saline. We then removed the wire and the Mincks closure device was deployed through the sheath under fluoroscopic guidance with good hemostasis. Pressure was held for 10 minutes post procedure and the patient was taken to recovery in stable condition. She did very well with the sedation and her procedure. ESTIMATED BLOOD LOSS: Approximately 5 mL. COMPLICATIONS: None PLAN: The patient should resume her Plavix and we will give her dose in recovery today. She should ambulate as much as possible to improve her circulation and help with her goals of weight loss and getting healthier. We will see her back within the week to check her groin access site and make sure she is doing okay after the procedure. CRISTAL BATES MD Apr 28, 2019 10:17
== END ==
LOC: M IRPRO 06:17
PROVIDERS: ATTEND Surgery Vascular Surgery
DX: I70.221 Atherosclerosis of native arteries of extremities with rest pain, right leg (principal); I70.92 Chronic total occlusion of artery of the extremities
CPT/HCPCS: 37228; 37232; 75710; 80048; 85027; 94640; 99152; 99153; C1725; C1760; C1769; C1887; C1894; J1200; J2250; J3010; Q9967

== ENCOUNTER → 2019-07-21 | Outpatient (REF) | payer OTHER ==
[~2019-07-21] MED LIST changes: -CLOPIDOGREL 75 MG TAB As Ordered ONE; -HEPARIN 1,000 UNITS/ML 10ML VIAL (FOR RADIOLOGY& DIALYSIS ONLY) As Ordered ONE; -IPRATROPIUM 0.5MG/ALBUTEROL 2.5MG INH SOL UD 3ML (DUONEB)(J7620) NEB ONE; -ISOVUE-300 61% 50ML VIAL (Q9967) As Ordered ONE; -LIDOCAINE 1% MDV 20ML VIAL As Ordered ONE; -MIDAZOLAM INJ 2 MG/2 ML VIAL (J2250) As Ordered ONE; +OMEP1CAP73 PO; -OMEP20CA4 PO; -SIMV40TA2; +SIMV40TA20; -diphenhydrAMINE INJ 50MG/ML VIAL (J1200) As Ordered ONE; -fentaNYL 100 MCG/2 ML INJECTION (J3010) As Ordered ONE
[2019-07-21 14:30] LABS: HEMOGLOBIN A1c 7.5 %
== END ==
LOC: M SFHCPLAZ 11:01
PROVIDERS: ATTEND Family Medicine
DX: E11.8 Type 2 diabetes mellitus with unspecified complications (principal)

== ENCOUNTER → 2019-11-06 | Outpatient (CLI) | payer OTHER ==
[~2019-11-06] MED LIST changes: +CYCL-707; +CYCL-707 PO; -CYCL10TA; -CYCL10TA PO; -ROPI0.5T PO; +ROPI0.5T3 PO
[2019-11-06 16:12] LABS: HEMOGLOBIN A1c 7.1 %
== END ==
LOC: M LAB 11:55
PROVIDERS: ATTEND Obstetrics & Gynecology
DX: E11.8 Type 2 diabetes mellitus with unspecified complications (principal)

== ENCOUNTER → 2019-11-14 | Outpatient (REF) | payer OTHER ==
[2019-11-14 14:07] LABS: ALBUMIN 3.5 GM/DL (3.2-5.2); ALT/SGPT 57 U/L (12-78); BILIRUBIN,TOTAL 0.5 MG/DL (0.2-1.0); BLOOD UREA NITROGEN 12 MG/DL (7-18); CALCIUM LEVEL 9.3 MG/DL (8.5-10.1); CARBON DIOXIDE LEVEL 28 MEQ/L (21-32); CHLORIDE LEVEL 104 MEQ/L (98-107); CHOLESTEROL LEVEL 163 MG/DL (<200); CHOLESTEROL RISK RATIO 3.395 (<5); CREATININE FOR GFR 0.85 MG/DL (0.55-1.30); GLOMERULAR FILTRATION RATE > 60.0 (>51); GLUCOSE, FASTING 175 MG/DL (70-100); HDL CHOLESTEROL 48 MG/DL (>40); LDL CHOLESTEROL 77 MG/DL (<100); NON-HDL-C 115 MG/DL; POTASSIUM SERUM 4.4 MEQ/L (3.5-5.1); SODIUM LEVEL 140 MEQ/L (136-145); TOTAL PROTEIN 7.2 GM/DL (6.4-8.2); TRIGLYCERIDES LEVEL 188 MG/DL (<150)
[2019-11-14 14:57] LABS: MALB URINE SIEMENS 18.8 MG/L; MAU/CREAT RATIO 9.5 MCG/MG (0.0-30.0)
== END ==
LOC: M SFHCPLAZ 10:06
PROVIDERS: ATTEND Family Medicine
DX: E11.8 Type 2 diabetes mellitus with unspecified complications (principal); Z13.220 Encounter for screening for lipoid disorders

== ENCOUNTER → 2020-05-07 | Outpatient (CLI) | payer SELFPAY | LOC: M LABSMTC 12:56 | PROVIDERS: ATTEND Pediatrics | DX: Z20.828 Contact with and (suspected) exposure to other viral communicable diseases (principal) ==

== ENCOUNTER → 2020-05-17 | Outpatient (CLI) | payer OTHER ==
--- NOTE | 2020-05-18 02:46 | REPPI ---
INDICATION: M25.512 PAIN IN LEFT SHOULDER COMPARISON: None. TECHNIQUE: Internal rotation, external rotation, and Y view. FINDINGS: No acute fracture or dislocation. The glenohumeral joint is intact and age-appropriate. The acromioclavicular joint demonstrates significant periarticular spurring both superiorly and inferiorly. The subacromial space is normal. No periarticular calcifications or loose bodies are identified. IMPRESSION: Moderate to significant spurring at the acromioclavicular joint. Remainder of the examination appears normal. <Electronically signed by Charles Cole > 05/18/20 [id number]
== END ==
LOC: M PLAIMG 11:54
PROVIDERS: ATTEND Family Medicine
DX: M25.712 Osteophyte, left shoulder (principal)

== ENCOUNTER → 2020-05-17 | Outpatient (REF) | payer OTHER ==
[2020-05-17 14:13] LABS: HEMATOCRIT 49.8 % (36.0-47.0); HEMOGLOBIN 15.3 g/dl (12.0-15.5); MEAN CORPUSCULAR HEMOGLOBIN 29.1 pg (27.0-33.0); MEAN CORPUSCULAR HGB CONC 30.7 g/dl (32.0-36.5); MEAN CORPUSCULAR VOLUME 94.7 fl (80.0-96.0); PLATELET COUNT, AUTOMATED 193 10^3/uL (150-450); RED BLOOD COUNT 5.26 10^6/uL (4.00-5.40); WHITE BLOOD COUNT 11.6 10^3/uL (4.0-10.0)
[2020-05-17 14:43] LABS: HEMOGLOBIN A1c 6.2 %
== END ==
LOC: M SFHCPLAZ 11:47
PROVIDERS: ATTEND Family Medicine
DX: E11.8 Type 2 diabetes mellitus with unspecified complications (principal)

== ENCOUNTER → 2020-07-30 | Outpatient (CLI) | payer OTHER ==
--- NOTE | 2020-07-30 19:11 | REP ---
INDICATION: LUNG SCREENING. COMPARISON: Comparison CT study December 23, 2018.. TECHNIQUE: Low-dose helical scanning is acquired. 3 mm axial lung only windows are provided. FINDINGS: Preliminary internship coordinator view is unremarkable. There is minimal linear scarring at the left base in the lingula. This is unchanged. No pulmonary mass or significant pulmonary nodule is appreciated. No infiltrate or atelectasis is seen. Vascular calcifications noted. IMPRESSION: Lung RADS category 1 findings. Repeat screening study suggested in 1 year. <Electronically signed by Live Morales > 07/30/20 [id number]
== END ==
LOC: M RAD 12:31
PROVIDERS: ATTEND Family Medicine
DX: Z12.2 Encounter for screening for malignant neoplasm of respiratory organs (principal)

== ENCOUNTER → 2020-08-16 | Outpatient (CLI) | payer OTHER ==
--- NOTE | 2020-08-16 18:26 | REPPI ---
INDICATION: LEFT KNEE PAIN COMPARISON: None. TECHNIQUE: AP, lateral, bilateral oblique and sunrise views. FINDINGS: Mild arthritic changes including increased sclerosis to the tibial plateau with medial joint space narrowing, fraying along the anterior patellar margin, and small ligamentous calcifications along the medial collateral ligament. No acute or healed fracture. No obvious effusion. IMPRESSION: Mild arthritic changes. <Electronically signed by Charles Cole > 08/16/20 [id number]
== END ==
LOC: M PLAIMG 14:44
PROVIDERS: ATTEND Family Medicine
DX: M25.562 Pain in left knee (principal); M17.12 Unilateral primary osteoarthritis, left knee

== ENCOUNTER 2020-10-16 13:18 | Emergency (ER) | payer OTHER ==
[~2020-10-16] VITALS: Ht 157.5 cm; Wt 81.8 kg
[2020-10-16 13:18] VITALS: BP 134/90
[2020-10-16] MEDS ORDERED: IBUPROFEN 600MG TAB PO ONE (14:15)
--- NOTE | 2020-10-16 15:22 | REP ---
INDICATION: lump axilla. The patient reports recent COVID vaccination in the left arm 2nd dose October 13, 2020. COMPARISON: None. TECHNIQUE: Left axillary sonography. FINDINGS: Left axillary targeted sonography in the area the palpable lump demonstrates 2 hypertrophied lymph nodes. The largest of these measures 3.2 x 2.0 x 3.7 cm. This is quite hypoechoic. There is some internal Doppler flow. The 2nd node is smaller measuring 1.2 x 1.1 x 1.1 cm. Otherwise unremarkable. No abnormal fluid collection. IMPRESSION: Left axillary lymphadenopathy as above. Largest lymph node measures 3.2 x 3.7 x 2.0 cm in diameter. This may be related to vaccine induced lymph node hypertrophy. A follow-up ultrasound is recommended in 3-4 weeks unless, a follow-up axillary ultrasound suggested in 3-4 weeks to document improvement. Sooner if symptoms progress. <Electronically signed by Live Morales > 10/16/20 [id number]
== END 2020-10-16 15:59 | disposition home or self-care (01) ==
LOC: M ED 13:18
DX: R59.1 Generalized enlarged lymph nodes (principal); J44.9 Chronic obstructive pulmonary disease, unspecified; J45.909 Unspecified asthma, uncomplicated; E11.9 Type 2 diabetes mellitus without complications; I10 Essential (primary) hypertension; Z79.899 Other long term (current) drug therapy; Z79.82 Long term (current) use of aspirin; Z79.4 Long term (current) use of insulin; Z79.01 Long term (current) use of anticoagulants; Z88.0 Allergy status to penicillin; Z88.1 Allergy status to other antibiotic agents; Z88.2 Allergy status to sulfonamides; Z88.5 Allergy status to narcotic agent; F17.210 Nicotine dependence, cigarettes, uncomplicated

== ENCOUNTER → 2020-11-18 | Outpatient (CLI) | payer OTHER ==
--- NOTE | 2020-11-18 13:04 | REPMRS ---
Patient History The patient states she has not had a clinical breast exam in over a year. Family history of ovarian cancer in mother. No Hormone Replacement Therapy No breast complaints today Patient signed the MRS sheet 1st covid vaccine 09/16/20-left arm-Moderna 2nd covid vaccine 10/12/20-left arm Priors on PACS Patient Identification Verified Digital Woman Screen Mammo: November 18, 2020 - Exam #: [id number] Bilateral CC and MLO view(s) were taken. Technologist: Merle Price, Technologist Prior study comparison: March 14, 2018, bilateral digital woman screen mammo performed at [facility]. 2016, bilateral digital mammo screening bilat, performed at [facility]. FINDINGS: The breast tissue is almost entirely fat. The Volpara volumetric breast density category is: A. There has been no change in the appearance of the mammogram from the prior studies. There is no interval development of dominant mass, architectural distortion, or grouped microcalcification typical of malignancy. 3-D tomosynthesis shows no additional findings. Assessment: BI-RADS/ACR category 1 mammogram. Negative Mammogram. Recommendation Routine screening mammogram of both breasts in 1 year (for women over age 40). This patient's [facility] Lifetime Breast Cancer RIsk is estimated at 6.5 %. This mammogram was interpreted with the aid of an FDA-approved computer-aided dectection system. Electronically Signed By: Live Morales MD 11/18/20 [id number]
== END ==
LOC: M WHC 11:21
PROVIDERS: ATTEND Family Medicine
DX: Z12.31 Encounter for screening mammogram for malignant neoplasm of breast (principal)

== ENCOUNTER → 2020-11-18 | Outpatient (REF) | payer OTHER ==
[2020-11-18 14:10] LABS: ALBUMIN 3.8 GM/DL (3.2-5.2); ALT/SGPT 31 U/L (12-78); BILIRUBIN,TOTAL 0.5 MG/DL (0.2-1.0); BLOOD UREA NITROGEN 16 MG/DL (7-18); CALCIUM LEVEL 9.4 MG/DL (8.8-10.2); CARBON DIOXIDE LEVEL 27 MEQ/L (21-32); CHLORIDE LEVEL 106 MEQ/L (98-107); CHOLESTEROL LEVEL 128 MG/DL (<200); CHOLESTEROL RISK RATIO 2.909 (<5); CREATININE FOR GFR 0.76 MG/DL (0.55-1.30); GLOMERULAR FILTRATION RATE > 60.0 (>45); GLUCOSE, FASTING 106 MG/DL (70-100); HDL CHOLESTEROL 44 MG/DL (>40); LDL CHOLESTEROL 49 MG/DL (<100); NON-HDL-C 84 MG/DL; POTASSIUM SERUM 4.8 MEQ/L (3.5-5.1); SODIUM LEVEL 141 MEQ/L (136-145); TRIGLYCERIDES LEVEL 175 MG/DL (<150)
[2020-11-18 14:11] LABS: MAU/CREAT RATIO 5.9 MCG/MG (0.0-30.0)
[2020-11-18 14:48] LABS: HEMOGLOBIN A1c 6.4 %
== END ==
LOC: M SFHCPLAZ 11:03
PROVIDERS: ATTEND Family Medicine
DX: E11.42 Type 2 diabetes mellitus with diabetic polyneuropathy (principal)

== ENCOUNTER → 2020-12-17 | Outpatient (CLI) | payer OTHER ==
[~2020-12-17] MED LIST changes: -DOXY100C37 PO; +DOXY1CAP62 PO
--- NOTE | 2020-12-18 08:03 | REP ---
INDICATION: PAIN IN LT KNEE. COMPARISON: None. TECHNIQUE: Sagittal spin-echo proton density, T2 STIR and T2 FLASH. Coronal spin-echo proton density and fat suppressed proton density. Axial fat suppressed proton density. FINDINGS: The anterior and posterior horns of the lateral meniscus are within normal limits. There is grade 3 signal change seen the posterior horn of the medial meniscus. The anterior horn is truncated. The anterior and posterior cruciate ligaments are intact. The quadriceps and patellar tendons are intact. The medial and lateral collateral ligaments are intact. The medial and lateral patellar retinacula are intact. There is thinning and irregularity of the articular cartilages with slight tricompartmental marginal osteophytosis. There is no lawrence joint effusion. There is no Minor's cyst. IMPRESSION: The posterior horn of the medial meniscus is torn. Due to meniscal truncation I cannot rule out the possibility of a slight bucket-handle component. There is tricompartmental marginal osteophytosis and tricompartmental chondromalacia as described above. <Electronically signed by Denzel Coello > 12/18/20 0800
== END ==
LOC: M RAD 13:15
PROVIDERS: ATTEND Family Medicine
DX: S83.242A Other tear of medial meniscus, current injury, left knee, initial encounter (principal); M25.762 Osteophyte, left knee; M94.262 Chondromalacia, left knee

== ENCOUNTER → 2021-01-11 | Outpatient (CLI) | payer OTHER ==
[~2021-01-11] MED LIST changes: +DOXY-443 PO; -DOXY1CAP62 PO; +GABA-283 PO; +OMEP-173; -OMEP-218; +TRUL0.5I
== END ==
LOC: M SOG 08:55
PROVIDERS: ATTEND Orthopaedic Surgery Adult Reconstructive Orthopaedic Surgery
DX: M25.562 Pain in left knee (principal)

== ENCOUNTER → 2021-02-04 | Outpatient (CLI) | payer OTHER ==
[~2021-02-04] MED LIST changes: -DOXY-443 PO; +DOXY1CAP62 PO; -OMEP-173; +OMEP-218
[2021-02-04 14:02] LABS: HEMATOCRIT 45.7 % (36.0-47.0); HEMOGLOBIN 14.3 g/dl (12.0-15.5); MEAN CORPUSCULAR HEMOGLOBIN 29.7 pg (27.0-33.0); MEAN CORPUSCULAR HGB CONC 31.3 g/dl (32.0-36.5); MEAN CORPUSCULAR VOLUME 94.8 fl (80.0-96.0); PLATELET COUNT, AUTOMATED 215 10^3/uL (150-450); RED BLOOD COUNT 4.82 10^6/uL (4.00-5.40); WHITE BLOOD COUNT 10.9 10^3/uL (4.0-10.0)
[2021-02-04 14:20] LABS: HEMOGLOBIN A1c 6.5 %
[2021-02-04 14:29] LABS: ALBUMIN 3.6 GM/DL (3.2-5.2); ALT/SGPT 33 U/L (12-78); BILIRUBIN,TOTAL 0.6 MG/DL (0.2-1.0); BLOOD UREA NITROGEN 19 MG/DL (7-18); CALCIUM LEVEL 9.1 MG/DL (8.8-10.2); CARBON DIOXIDE LEVEL 30 MEQ/L (21-32); CHLORIDE LEVEL 106 MEQ/L (98-107); CREATININE FOR GFR 0.72 MG/DL (0.55-1.30); GLOMERULAR FILTRATION RATE > 60.0 (>45); GLUCOSE, FASTING 92 MG/DL (70-100); POTASSIUM SERUM 4.5 MEQ/L (3.5-5.1); SODIUM LEVEL 140 MEQ/L (136-145); TOTAL PROTEIN 6.8 GM/DL (6.4-8.2)
== END ==
LOC: M PLALAB 11:53
PROVIDERS: ATTEND Student in an Organized Health Care Education/Training Program
DX: Z01.818 Encounter for other preprocedural examination (principal); E11.8 Type 2 diabetes mellitus with unspecified complications

== ENCOUNTER → 2021-02-09 | Outpatient (CLI) | payer OTHER | LOC: M LABSMTC 10:38 | PROVIDERS: ATTEND Anesthesiology | DX: Z01.812 Encounter for preprocedural laboratory examination (principal); Z20.822 Contact with and (suspected) exposure to COVID-19 ==

== ENCOUNTER 2021-02-14 08:35 | Day surgery (SDC) | payer OTHER ==
[~2021-02-14] VITALS: Ht 157.5 cm; Wt 82.6 kg
[~2021-02-14 08:35] MED LIST changes: +ACETAMINOPHEN 500 MG TAB PO ONE; +CelecoXIB 400 MG CAP PO ONE; +GABAPENTIN 300 MG CAP PO ONE; +LR 1,000 ML IV ONE; +ONDANSETRON 4MG/2ML VIAL IV ONE
[2021-02-14] MEDS ORDERED: propofoL 200 MG/20 ML VIAL As Ordered ONE (08:53)
[2021-02-14] MEDS ORDERED: LIDOCAINE 2% 100MG/5ML SDV (FOR ANES.) As Ordered ONE (08:53)
[2021-02-14] MEDS ORDERED: ONDANSETRON 4MG/2ML VIAL As Ordered ONE (08:53)
[2021-02-14] MEDS ORDERED: fentaNYL 100 MCG/2 ML INJECTION (J3010) As Ordered ONE (08:53)
[2021-02-14] MEDS ORDERED: MIDAZOLAM INJ 2MG/2ML VIAL (J2250 PER 1MG) As Ordered ONE (08:53)
[2021-02-14] MEDS ORDERED: EPINEPHrine 1MG/ML INJ 30ML MD-VIAL As Ordered ONE (10:36)
[2021-02-14] MEDS ORDERED: BUPIVACAINE/EPIN 0.5% 30 ML VIAL As Ordered ONE (10:36)
[2021-02-14] MEDS ORDERED: dexameTHASONE 4 MG/ML 1ML VIAL (J1100 PER 1MG) As Ordered ONE (12:09)
[2021-02-14] MEDS ORDERED: METOPROLOL 5 MG/5 ML VIAL As Ordered ONE (12:27)
[2021-02-14] MEDS ORDERED: METOCLOPRAMIDE INJ 10MG/2ML VIAL (J2765 PER 1) IV PRN (13:30)
[2021-02-14] MEDS ORDERED: LR 1,000 ML IV SCH ×2 (13:30→14:25)
[2021-02-14] MEDS ORDERED: fentaNYL 100 MCG/2 ML INJECTION (J3010) IV PRN (13:30)
[2021-02-14] MEDS ORDERED: ONDANSETRON 4MG/2ML VIAL IV PRN (13:30)
[2021-02-14] MEDS ORDERED: ALBUTEROL SULFATE 2.5 MG/0.5 ML INH NEB SOLN INH ONE (13:40)
[2021-02-14] MEDS ORDERED: traMADol 50 MG TAB PO PRN (14:40)
[2021-02-14 15:30] VITALS: BP 115/74
--- NOTE | 2021-02-14 22:21 | ROOPDOC ---
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 COMPLICATIONS: No known complications. REMARKS: Tourniquet inflated for 53 minutes. PROCEDURE NOTE: The patient was seen in the preoperative area, Consent was reviewed or obtained and the appropriate extremity was marked. DESCRIPTION OF PROCEDURE: The patient was brought to the operating room and after a surgical pause, the anesthetic was induced. The patient was a ppropriately positioned supine on the operating room table. A tourniquet was applied to the appropriate thigh with appropriate padding. Side bolster was also applied to help with manipulation of the extremity during the procedure. The extremity was prepped with chlorhexidine. The patient was draped in the normal sterile fashion. After a surgical safety checklist was performed, and a timeout was performed, the tourniquet was inflated and the incision over the lateral portal site was carried out. The trocar was introduced using the blunt tip. The scope was introduced and the fluid was allowed to run until the joint was insufflated with the scope in the patellofemoral joint. A diagnostic arthroscopy was then carried out. A medial portal was established using needle localization technique. A superior lateral portal was also established using needle localization. Patellofemoral joint: Trochlea demonstrated grade 2 and 3 change Patella: Grade 2 Medial gutter: No Lateral gutter: No Medial meniscus: Complex meniscal tear extending from posterior horn all the way up to the anterior aspect with a bucket-handle component within the compartment of the medial tibiofemoral space. Difficult debridement utilizing arthroscopic punches and shaver. Medial femoral condyle: Grade 2 with minimal 3 changes Medial tibial condyle: Grade 2 with minimal 3 change ACL: Grade 2-3 Lateral meniscus: Stable throughout Lateral femoral condyle: Grade 1-2 Lateral tibial plateau: Grade 1-2 Once the arthroscopic procedure was completed, the fluid was removed from the joint and the wounds were closed with 3. 0 Monocryl suture. Local anesthetic of 0.5% Marcaine with epi was instilled in the soft tissues and into the joint region. Mastisol was applied to the skin followed by Steri-Strips and Telfa and Tegaderm dressing. This was reinforced with an abdominal pad and a large Daniel wrap was placed up to the level of the thigh from the foot and ankle. The patient tolerated the procedure well with no known complications. The patient will be seen for follow-up within 2 weeks, as scheduled. Postoperative instruction booklet was provided. The patient will have prescriptions for tramadol for pain, resume aspirin and Plavix DVT prophylaxis, and senna for constipation. Tylenol and ibuprofen can be used as directed by bottle instructions. Prescriptions were sent to pharmacy of record, as requested. Thank you for referring this patient to my care, JUAN WONG MD Feb 14, 2021 22:21
--- NOTE | 2021-02-14 22:22 | CR.PDOC ---
Consultation REASON FOR CONSULTATION/CHIEF COMPLAINT: . HISTORY OF PRESENT ILLNESS: . ALLERGIES: Please see below. HOME MEDICATIONS: Please see below. PAST MEDICAL HISTORY: 1. . 2. . PAST SURGICAL HISTORY: 1. 2. FAMILY HISTORY: Father: Mother: Siblings: Children: Hereditary Diseases: Unexpected deaths due to medical reasons: SOCIAL HISTORY: Marital status and/or living arrangements: Children: Employment: Tobacco use: ETOH: Illicit drug use: IV drug use: Other relevant social factors: REVIEW OF SYSTEMS: CONSTITUTIONAL: . HEENT: . CARDIOVASCULAR: . RESPIRATORY: . GENITOURINARY: . MUSCULOSKELETAL: . GASTROINTESTINAL: . SKIN: . NEUROLOGICAL: . PSYCHIATRIC: . ENDOCRINE: . HEMATOLOGIC/LYMPHATIC: . ALLERGIC/IMMUNOLOGIC: . PHYSICAL EXAMINATION: VITAL SIGNS: Please see below. GENERAL APPEARANCE: . HEENT: . RESPIRATORY: . CARDIOVASCULAR: . ABDOMEN: . EXTREMITIES: . NEUROLOGICAL: . PSYCHIATRIC: . LABORATORY DATA: Please see below. ASSESSMENT/PLAN: 1. . 2. . Vital Signs/I&O Vital Signs Date Time Temp Pulse Resp B/P (MAP) Pulse Ox O2 Delivery O2 Flow Rate FiO2 02/14/21 15:30 97.0 93 18 115/74 (88) 93 Room Air 02/14/21 14:05 2.0 02/14/21 13:25 96 Laboratory Data Labs 24H Laboratory Tests 2 02/14/21 09:38: Bedside Glucose ([facility], 1928[facility]1983c Panel) 132H Allergies Coded Allergies: codeine (Verified Allergy, Severe, THROAT CLOSES, 02/14/21) Penicillins (Verified Allergy, Unknown, 01/31/21) Sulfa (Sulfonamide Antibiotics) (Verified Allergy, Unknown, 01/31/21) erythromycin base (Verified Allergy, Unknown, 01/31/21) Home Medications Scheduled Aspirin (Aspirin EC) 81 Mg Tablet.dr, 81 MG PO DAILY, (Reported) Clopidogrel Bisulfate (Clopidogrel) 75 Mg Tablet, 75 MG PO DAILY for 60 Days, #60 Cyclobenzaprine HCl (Cyclobenzaprine HCl) 10 Mg Tablet, 10 MG PO DAILY, (Reported) Dulaglutide (Trulicity) 0.75 Mg/0.5 Ml Pen.injctr, 0.75 MG SC WEEKLY WEDNESDAYS, (Reported) Gabapentin (Gabapentin) 400 Mg Capsule, 400 MG PO TID, (Reported) Metformin HCl (Metformin HCl) 1,000 Mg Tab, 1 TAB PO BID, (Reported) Omeprazole (Omeprazole) 20 Mg Cap, 1 TAB PO DAILY, (Reported) Ropinirole HCl (Ropinirole HCl) 0.5 Mg Tab, 1 TAB PO QHS, (Reported) Salmeterol/Fluticasone (Advair 250-50 Diskus) 14 Puff/Inhaler Aerp, BID, (Reported) Trazodone HCl (Trazodone HCl) 50 Mg Tab, 1 TAB PO QHS, (Reported) Scheduled PRN Albuterol Sulf (Albuterol Sulfate) 2.5 Mg/3 Ml Nebu, 1 VIAL NEB Q4HP PRN for wheezing, #50 Miscellaneous Medications Albuterol Sulfate (Ventolin Hfa) 108 Mcg/Act Aer, (Reported) Simvastatin (Simvastatin) 40 Mg Tablet, (Reported) LEONIE WONG MD Feb 14, 2021 22:22
== END 2021-02-14 15:55 | disposition home or self-care (01) ==
LOC: M SDC 08:35
PROVIDERS: ATTEND Orthopaedic Surgery Adult Reconstructive Orthopaedic Surgery
DX: S83.222A Peripheral tear of medial meniscus, current injury, left knee, initial encounter (principal); X58.XXXA Exposure to other specified factors, initial encounter; Y92.89 Other specified places as the place of occurrence of the external cause; M23.612 Other spontaneous disruption of anterior cruciate ligament of left knee; M17.12 Unilateral primary osteoarthritis, left knee; R01.1 Cardiac murmur, unspecified; I99.9 Unspecified disorder of circulatory system; E11.40 Type 2 diabetes mellitus with diabetic neuropathy, unspecified; K76.0 Fatty (change of) liver, not elsewhere classified; R12 Heartburn; Z95.820 Peripheral vascular angioplasty status with implants and grafts; I73.9 Peripheral vascular disease, unspecified; F41.9 Anxiety disorder, unspecified; F32.9 Major depressive disorder, single episode, unspecified; J44.9 Chronic obstructive pulmonary disease, unspecified; R06.02 Shortness of breath; J45.909 Unspecified asthma, uncomplicated; F17.210 Nicotine dependence, cigarettes, uncomplicated; F10.11 Alcohol abuse, in remission; Z88.5 Allergy status to narcotic agent; Z88.1 Allergy status to other antibiotic agents; Z88.0 Allergy status to penicillin; Z88.2 Allergy status to sulfonamides; Z79.899 Other long term (current) drug therapy; Z79.51 Long term (current) use of inhaled steroids; Z79.82 Long term (current) use of aspirin; Z79.02 Long term (current) use of antithrombotics/antiplatelets; Z79.84 Long term (current) use of oral hypoglycemic drugs
CPT/HCPCS: 29881; J1100; J2250; J2405; J3010

== ENCOUNTER → 2021-02-25 | Outpatient (CLI) | payer OTHER ==
[~2021-02-25] MED LIST changes: -ACETAMINOPHEN 500 MG TAB PO ONE; -CelecoXIB 400 MG CAP PO ONE; -GABAPENTIN 300 MG CAP PO ONE; -LR 1,000 ML IV ONE; -ONDANSETRON 4MG/2ML VIAL IV ONE
[2021-02-25 14:21] LABS: BASO # 0.1 10^3/uL (0.0-0.2); BASO % 0.5 % (0.0-1.0); EOS # 0.3 10^3/uL (0.0-0.5); EOS % 2.7 % (0.0-3.0); HEMATOCRIT 45.3 % (36.0-47.0); HEMOGLOBIN 14.6 g/dl (12.0-15.5); LYMPH # 3.1 10^3/uL (1.5-5.0); LYMPH % 26.1 % (24.0-44.0); MEAN CORPUSCULAR HEMOGLOBIN 30.2 pg (27.0-33.0); MEAN CORPUSCULAR HGB CONC 32.2 g/dl (32.0-36.5); MEAN CORPUSCULAR VOLUME 93.6 fl (80.0-96.0); MONO # 0.6 10^3/uL (0.0-0.8); MONO % 4.6 % (2.0-8.0); NEUTROPHILS # 7.8 10^3/uL (1.5-8.5); NEUTROPHILS % 65.8 % (36.0-66.0); PLATELET COUNT, AUTOMATED 266 10^3/uL (150-450); RED BLOOD COUNT 4.84 10^6/uL (4.00-5.40); WHITE BLOOD COUNT 11.9 10^3/uL (4.0-10.0)
== END ==
LOC: M LAB 13:47
PROVIDERS: ATTEND Student in an Organized Health Care Education/Training Program
DX: D72.829 Elevated white blood cell count, unspecified (principal)

== ENCOUNTER → 2021-12-08 | Outpatient (CLI) | payer OTHER ==
[~2021-12-08] MED LIST changes: +ALBU2.5V10 NEB; -ALBU83IN NEB; +DOXY-443 PO; -DOXY1CAP62 PO; +OMEP-173; -OMEP-218; +PROHANCE 279.3MG/ML 15ML VIAL As Ordered ONE; +PROHANCE 279.3MG/ML 5ML VIAL As Ordered ONE
== END ==
LOC: M RAD 15:30
PROVIDERS: ATTEND Otolaryngology
DX: H90.3 Sensorineural hearing loss, bilateral (principal)
CPT/HCPCS: 70553; A9576

== ENCOUNTER → 2022-01-04 | Outpatient (CLI) | payer OTHER ==
[~2022-01-04] MED LIST changes: -PROHANCE 279.3MG/ML 15ML VIAL As Ordered ONE; -PROHANCE 279.3MG/ML 5ML VIAL As Ordered ONE
[2022-01-04 14:07] LABS: BASO # 0.1 10^3/uL (0.0-0.2); BASO % 0.9 % (0.0-1.0); EOS # 0.8 10^3/uL (0.0-0.5); HEMATOCRIT 46.5 % (36.0-47.0); HEMOGLOBIN 14.7 g/dl (12.0-15.5); LYMPH # 3.2 10^3/uL (1.5-5.0); LYMPH % 30.1 % (24.0-44.0); MEAN CORPUSCULAR HEMOGLOBIN 30.2 pg (27.0-33.0); MEAN CORPUSCULAR HGB CONC 31.6 g/dl (32.0-36.5); MEAN CORPUSCULAR VOLUME 95.7 fl (80.0-96.0); MONO # 0.5 10^3/uL (0.0-0.8); MONO % 4.8 % (2.0-8.0); NEUTROPHILS # 5.9 10^3/uL (1.5-8.5); NEUTROPHILS % 55.7 % (36.0-66.0); PLATELET COUNT, AUTOMATED 195 10^3/uL (150-450); RED BLOOD COUNT 4.86 10^6/uL (4.00-5.40); WHITE BLOOD COUNT 10.6 10^3/uL (4.0-10.0)
[2022-01-04 15:01] LABS: ACETONE/KETONE 0.71 MG/DL (<2.81); BLOOD UREA NITROGEN 16 MG/DL (7-18); CALCIUM LEVEL 9.7 MG/DL (8.8-10.2); CARBON DIOXIDE LEVEL 29 MEQ/L (21-32); CHLORIDE LEVEL 106 MEQ/L (98-107); CREATININE FOR GFR 0.86 MG/DL (0.55-1.30); GLOMERULAR FILTRATION RATE > 60.0 (>45); GLUCOSE, FASTING 147 MG/DL (70-100); POTASSIUM SERUM 4.6 MEQ/L (3.5-5.1); SODIUM LEVEL 138 MEQ/L (136-145)
[2022-01-04 16:51] LABS: HEMOGLOBIN A1c 6.6 %
== END ==
LOC: M PLALAB 10:07
PROVIDERS: ATTEND Student in an Organized Health Care Education/Training Program
DX: E11.8 Type 2 diabetes mellitus with unspecified complications (principal); R53.83 Other fatigue

== ENCOUNTER 2022-02-11 11:08 | Emergency (ER) | payer OTHER ==
[~2022-02-11] VITALS: Ht 157.5 cm; Wt 84.9 kg
[2022-02-11] MEDS ORDERED: IPRATROPIUM 0.5MG/ALBUTEROL 2.5MG INH SOL UD 3ML (DUONEB) NEB ONE (11:40)
[2022-02-11] MEDS ORDERED: methylPREDNISolone 125MG 2ML VIAL IV ONE (11:40)
[2022-02-11] MEDS ORDERED: diphenhydrAMINE 50MG/ML VIAL (J1200) IV ONE (11:40)
[2022-02-11] MEDS ORDERED: FAMOTIDINE 20MG/2ML VIAL IVP ONE (11:40)
[2022-02-11] MEDS ORDERED: PEPC1TAB5 PO (13:14)
[2022-02-11] MEDS ORDERED: PRED20TA PO (13:14)
[2022-02-11] MEDS ORDERED: BENA25CA4 PO (13:15)
[2022-02-11 13:31] VITALS: BP 131/75
== END 2022-02-11 13:42 | disposition home or self-care (01) ==
LOC: M ED 11:08
DX: S40.862A Insect bite (nonvenomous) of left upper arm, initial encounter (principal); W57.XXXA Bitten or stung by nonvenomous insect and other nonvenomous arthropods, initial encounter; Y92.89 Other specified places as the place of occurrence of the external cause; L50.9 Urticaria, unspecified; E11.9 Type 2 diabetes mellitus without complications; J44.9 Chronic obstructive pulmonary disease, unspecified; J45.909 Unspecified asthma, uncomplicated; E78.9 Disorder of lipoprotein metabolism, unspecified; F32.A Depression, unspecified; F41.9 Anxiety disorder, unspecified; K21.9 Gastro-esophageal reflux disease without esophagitis; M54.9 Dorsalgia, unspecified; Z79.899 Other long term (current) drug therapy; Z79.82 Long term (current) use of aspirin; Z79.01 Long term (current) use of anticoagulants; Z88.0 Allergy status to penicillin; Z88.1 Allergy status to other antibiotic agents; Z88.2 Allergy status to sulfonamides; Z88.5 Allergy status to narcotic agent; Z91.030 Bee allergy status; F17.200 Nicotine dependence, unspecified, uncomplicated
CPT/HCPCS: 93041; 94640; 94760; 96374; 96375; 99284; J1200; J2930

== ENCOUNTER 2022-02-26 01:16 | Emergency (ER) | payer OTHER ==
[~2022-02-26] VITALS: Ht 157.5 cm; Wt 81.8 kg
[~2022-02-26 01:16] MED LIST changes: +BENA25CA4 PO; +PEPC1TAB5 PO
[2022-02-26 07:40] VITALS: BP 130/72
== END 2022-02-26 07:45 | disposition home or self-care (01) ==
LOC: M ED 01:16
DX: M79.662 Pain in left lower leg (principal); R22.42 Localized swelling, mass and lump, left lower limb; E11.9 Type 2 diabetes mellitus without complications; Z78.0 Asymptomatic menopausal state; Z79.899 Other long term (current) drug therapy; Z79.82 Long term (current) use of aspirin; Z79.01 Long term (current) use of anticoagulants; Z88.0 Allergy status to penicillin; Z88.1 Allergy status to other antibiotic agents; Z88.2 Allergy status to sulfonamides; Z88.5 Allergy status to narcotic agent; Z91.030 Bee allergy status; F17.200 Nicotine dependence, unspecified, uncomplicated

== ENCOUNTER → 2022-03-03 | Outpatient (CLI) | payer OTHER ==
[2022-03-03 17:04] LABS: HEMOGLOBIN A1c 8.6 %
[2022-03-03 17:25] LABS: CHOLESTEROL RISK RATIO 3.068 (<5)
== END ==
LOC: M PLALAB 12:44
PROVIDERS: ATTEND Student in an Organized Health Care Education/Training Program
DX: E11.8 Type 2 diabetes mellitus with unspecified complications (principal)

== ENCOUNTER → 2022-05-16 | Outpatient (CLI) | payer OTHER ==
[2022-05-16 19:03] LABS: HEMOGLOBIN A1c 8.2 % (4.0-6.0)
[2022-05-16 20:18] LABS: BLOOD UREA NITROGEN 19 MG/DL (9-23); CALCIUM LEVEL 9.2 MG/DL (8.3-10.6); CARBON DIOXIDE LEVEL 29 MMOL/L (20-31); CHLORIDE LEVEL 103 MMOL/L (98-107); CREATININE FOR GFR 0.75 MG/DL (0.55-1.30); GLOMERULAR FILTRATION RATE > 60.0 (>45); GLUCOSE, FASTING 149 MG/DL (74-106); POTASSIUM SERUM 4.5 MMOL/L (3.5-5.1); SODIUM LEVEL 141 MMOL/L (136-145); VITAMIN B12 LEVEL 235 PG/ML (211-911)
== END ==
LOC: M PLALAB 16:22
PROVIDERS: ATTEND Student in an Organized Health Care Education/Training Program
DX: E11.42 Type 2 diabetes mellitus with diabetic polyneuropathy (principal)

== ENCOUNTER → 2022-06-07 | Outpatient (CLI) | payer OTHER | LOC: M RAD 11:44 | PROVIDERS: ATTEND Surgery Vascular Surgery | DX: I73.9 Peripheral vascular disease, unspecified (principal) ==

== ENCOUNTER 2022-07-30 15:02 | Emergency (ER) | payer OTHER ==
[~2022-07-30] VITALS: Ht 157.5 cm; Wt 81.8 kg
[2022-07-30 15:14] VITALS: BP 134/80
== END 2022-07-30 17:00 | disposition home or self-care (01) ==
LOC: M ED 15:02
DX: U07.1 COVID-19 (principal); E11.9 Type 2 diabetes mellitus without complications; J45.909 Unspecified asthma, uncomplicated; J44.9 Chronic obstructive pulmonary disease, unspecified; E78.5 Hyperlipidemia, unspecified; K21.9 Gastro-esophageal reflux disease without esophagitis; F41.9 Anxiety disorder, unspecified; F31.9 Bipolar disorder, unspecified; F17.200 Nicotine dependence, unspecified, uncomplicated; Z79.84 Long term (current) use of oral hypoglycemic drugs; Z79.82 Long term (current) use of aspirin; Z79.899 Other long term (current) drug therapy; Z88.0 Allergy status to penicillin; Z88.2 Allergy status to sulfonamides; Z88.5 Allergy status to narcotic agent; Z91.030 Bee allergy status

== ENCOUNTER 2022-08-29 19:55 | Emergency (ER) | payer OTHER ==
[~2022-08-29] VITALS: Ht 157.5 cm; Wt 81.8 kg
[2022-08-29 20:26] LABS: VENOUS BASE EXCESS 2.2 (-2.0-2.0); VENOUS HCO3 27.9 MEQ/L (23.0-27.0); VENOUS O2 SATURATION 95.3 % (60.0-80.0); VENOUS PARTIAL PRESSURE CO2 47.3 mmHg (38.0-50.0); VENOUS PARTIAL PRESSURE O2 70.4 mmHg (30.0-50.0); VENOUS PH 7.389 UNITS (7.330-7.430); VENOUS STANDARD HCO3 26.4 MEQ/L; VENOUS TOTAL CO2 29.4 MEQ/L (24.0-28.0)
[2022-08-29 20:33] LABS: BASO # 0.1 10^3/uL (0.0-0.2); BASO % 0.5 % (0.0-1.0); EOS # 0.4 10^3/uL (0.0-0.5); EOS % 2.9 % (0.0-3.0); HEMATOCRIT 44.5 % (36.0-47.0); HEMOGLOBIN 14.2 g/dl (12.0-15.5); LYMPH # 4.4 10^3/uL (1.5-5.0); LYMPH % 30.9 % (24.0-44.0); MEAN CORPUSCULAR HGB CONC 31.9 g/dl (32.0-36.5); MEAN CORPUSCULAR VOLUME 93.9 fl (80.0-96.0); MONO # 0.8 10^3/uL (0.0-0.8); MONO % 5.4 % (2.0-8.0); NEUTROPHILS # 8.6 10^3/uL (1.5-8.5); NEUTROPHILS % 59.9 % (36.0-66.0); PLATELET COUNT, AUTOMATED 215 10^3/uL (150-450); RED BLOOD COUNT 4.74 10^6/uL (4.00-5.40); WHITE BLOOD COUNT 14.3 10^3/uL (4.0-10.0)
[2022-08-29] MEDS ORDERED: methylPREDNISolone 125MG 2ML VIAL IV ONE (20:40)
[2022-08-29] MEDS: COMBIVENT RESPIMAT 100-20MCG INHALER 4GM INH SCH ×3 (20:55→21:47)
[2022-08-29 20:58] LABS: CK-MB VALUE MASS < 1.0 NG/ML (<3.6)
[2022-08-29 21:00] LABS: ALBUMIN 3.4 G/DL (3.2-5.2); ALKALINE PHOSPHATASE 59 U/L (46-116); ALT/SGPT 29 U/L (7.0-40); AST/SGOT 24 U/L (<34); BILIRUBIN,DIRECT 0.1 MG/DL (<0.4); BILIRUBIN,TOTAL 0.4 MG/DL (0.3-1.2); BLOOD UREA NITROGEN 15 MG/DL (9-23); CALCIUM LEVEL 9.2 MG/DL (8.3-10.6); CARBON DIOXIDE LEVEL 32 MMOL/L (20-31); CHLORIDE LEVEL 105 MMOL/L (98-107); CREATININE FOR GFR 0.66 MG/DL (0.55-1.30); GLOMERULAR FILTRATION RATE > 60.0 (>45); GLUCOSE, FASTING 92 MG/DL (74-106); POTASSIUM SERUM 4.1 MMOL/L (3.5-5.1); SODIUM LEVEL 140 MMOL/L (136-145); TOTAL PROTEIN 6.5 G/DL (5.7-8.2)
[2022-08-29 21:03] LABS: CPK CREATINE PHOSPHOKINASE 51 U/L (34-145); MB/CK RELATIVE INDEX 1.96 (< OR =4)
[2022-08-29] MEDS ORDERED: ISOVUE-370 76% 100ML VIAL As Ordered ONE (21:47)
[2022-08-29 21:52] LABS: CPK CREATINE PHOSPHOKINASE 42 U/L (34-145)
[2022-08-29 21:53] LABS: CK-MB VALUE MASS < 1.0 NG/ML (<3.6); MB/CK RELATIVE INDEX 2.38 (< OR =4)
[2022-08-29 23:55] VITALS: O2SAT 91
[2022-08-30] MEDS ORDERED: PRED20TA PO (00:11)
[2022-08-30 00:31] VITALS: BP 167/84
== END 2022-08-30 00:41 | disposition home or self-care (01) ==
LOC: M ED 19:55
DX: J44.1 Chronic obstructive pulmonary disease with (acute) exacerbation (principal); E11.9 Type 2 diabetes mellitus without complications; J45.909 Unspecified asthma, uncomplicated; Z86.16 Personal history of COVID-19; Z87.891 Personal history of nicotine dependence; Z82.49 Family history of ischemic heart disease and other diseases of the circulatory system; Z79.82 Long term (current) use of aspirin; Z79.899 Other long term (current) drug therapy; Z88.0 Allergy status to penicillin; Z88.2 Allergy status to sulfonamides; Z88.5 Allergy status to narcotic agent; Z91.030 Bee allergy status
CPT/HCPCS: 71045; 71275; 80048; 80076; 82550; 82553; 82803; 83605; 83880; 85025; 87040; 87077; 87185; 87486; 87581; 87633; 87798; 93005; 93041; 94640; 94760; 96374; 99285; J2930

== ENCOUNTER → 2022-09-12 | Outpatient (CLI) | payer OTHER ==
[~2022-09-12] MED LIST changes: +ACETAMINOPHEN 325 MG TAB As Ordered ONE; +ALBUTEROL SULFATE 2.5MG/0.5ML INH NEB SOLN INH ONE; +ALTEPLASE 2MG/2ML VIAL As Ordered ONE; +HEPARIN 1,000UNITS/ML 10ML VIAL (FOR RADIOLOGY & DIALYSIS ONLY) As Ordered ONE; +ISOVUE-300 61% 100ML VIAL As Ordered ONE; +LIDOCAINE 1% MDV 20ML VIAL As Ordered ONE; +MIDAZOLAM INJ 2MG/2ML VIAL As Ordered ONE; +NITROGLYCERIN IN D5W 25MG/250ML (100MCG/ML) As Ordered ONE; +ceFAZolin 2 GM/D5W 50 ML IV BAG As Ordered ONE; +ceFAZolin SOD 2 GM in IV 1 EA IV ONE; +fentaNYL 100 MCG/2 ML INJECTION As Ordered ONE; +hydrALAZINE 20MG/ML 1ML VIAL As Ordered ONE
[2022-09-12 08:45] LABS: HEMATOCRIT 44.7 % (36.0-47.0); HEMOGLOBIN 14.3 g/dl (12.0-15.5); MEAN CORPUSCULAR HEMOGLOBIN 30.2 pg (27.0-33.0); MEAN CORPUSCULAR VOLUME 94.5 fl (80.0-96.0); PLATELET COUNT, AUTOMATED 196 10^3/uL (150-450); RED BLOOD COUNT 4.73 10^6/uL (4.00-5.40); WHITE BLOOD COUNT 11.2 10^3/uL (4.0-10.0)
[2022-09-12 08:56] LABS: INR 0.91; PROTHROMBIN TIME 12.5 SECONDS (12.5-14.5)
[2022-09-12 09:00] LABS: BLOOD UREA NITROGEN 11 MG/DL (9-23); CALCIUM LEVEL 8.8 MG/DL (8.3-10.6); CARBON DIOXIDE LEVEL 29 MMOL/L (20-31); CHLORIDE LEVEL 106 MMOL/L (98-107); CREATININE FOR GFR 0.67 MG/DL (0.55-1.30); GLOMERULAR FILTRATION RATE > 60.0 (>45); GLUCOSE, FASTING 186 MG/DL (74-106); SODIUM LEVEL 140 MMOL/L (136-145)
[2022-09-12 09:09] LABS: PARTIAL THROMBOPLASTIN TIME 23.5 SECONDS (24.8-34.2)
[2022-09-12 16:55] VITALS: BP 118/59
== END ==
LOC: M IRPRO 07:43
PROVIDERS: ATTEND Surgery Vascular Surgery
DX: I70.213 Atherosclerosis of native arteries of extremities with intermittent claudication, bilateral legs (principal)
CPT/HCPCS: 37226; 37228; 80048; 85027; 85610; 85730; 86850; 87635; 94640; J0360; J0690; J1644; J2250; J2997; J3010

== ENCOUNTER → 2022-11-10 | Outpatient (CLI) | payer OTHER ==
[~2022-11-10] MED LIST changes: -ACETAMINOPHEN 325 MG TAB As Ordered ONE; -ALBUTEROL SULFATE 2.5MG/0.5ML INH NEB SOLN INH ONE; -ALTEPLASE 2MG/2ML VIAL As Ordered ONE; -HEPARIN 1,000UNITS/ML 10ML VIAL (FOR RADIOLOGY & DIALYSIS ONLY) As Ordered ONE; -ISOVUE-300 61% 100ML VIAL As Ordered ONE; -LIDOCAINE 1% MDV 20ML VIAL As Ordered ONE; -MIDAZOLAM INJ 2MG/2ML VIAL As Ordered ONE; -NITROGLYCERIN IN D5W 25MG/250ML (100MCG/ML) As Ordered ONE; -ceFAZolin 2 GM/D5W 50 ML IV BAG As Ordered ONE; -ceFAZolin SOD 2 GM in IV 1 EA IV ONE; -fentaNYL 100 MCG/2 ML INJECTION As Ordered ONE; -hydrALAZINE 20MG/ML 1ML VIAL As Ordered ONE
[2022-11-10 11:10] LABS: BASO # 0.1 10^3/uL (0.0-0.2); BASO % 0.7 % (0.0-1.0); EOS # 0.3 10^3/uL (0.0-0.5); EOS % 3.4 % (0.0-3.0); HEMOGLOBIN 14.5 g/dl (12.0-15.5); LYMPH # 3.3 10^3/uL (1.5-5.0); LYMPH % 33.8 % (24.0-44.0); MEAN CORPUSCULAR HGB CONC 31.5 g/dl (32.0-36.5); MEAN CORPUSCULAR VOLUME 95.2 fl (80.0-96.0); MONO # 0.6 10^3/uL (0.0-0.8); MONO % 6.1 % (2.0-8.0); NEUTROPHILS # 5.5 10^3/uL (1.5-8.5); NEUTROPHILS % 55.7 % (36.0-66.0); PLATELET COUNT, AUTOMATED 238 10^3/uL (150-450); RED BLOOD COUNT 4.83 10^6/uL (4.00-5.40); WHITE BLOOD COUNT 9.8 10^3/uL (4.0-10.0)
[2022-11-10 11:25] LABS: HEMOGLOBIN A1c 7.5 % (4.0-6.0)
[2022-11-10 11:47] LABS: VITAMIN B12 LEVEL 351 PG/ML (211-911)
[2022-11-10 11:49] LABS: ALBUMIN 3.3 G/DL (3.2-5.2); ALKALINE PHOSPHATASE 61 U/L (46-116); ALT/SGPT 29 U/L (7.0-40); AST/SGOT 28 U/L (<34); BILIRUBIN,TOTAL 0.4 MG/DL (0.3-1.2); BLOOD UREA NITROGEN 16 MG/DL (9-23); CALCIUM LEVEL 8.6 MG/DL (8.3-10.6); CARBON DIOXIDE LEVEL 26 MMOL/L (20-31); CHLORIDE LEVEL 110 MMOL/L (98-107); CHOLESTEROL LEVEL 146 MG/DL (<200); CHOLESTEROL RISK RATIO 3.24 (<5); CREATININE FOR GFR 0.77 MG/DL (0.55-1.30); GLOMERULAR FILTRATION RATE > 60.0 (>45); GLUCOSE, FASTING 132 MG/DL (74-106); LDL CHOLESTEROL 76.8 MG/DL (<100); POTASSIUM SERUM 4.3 MMOL/L (3.5-5.1); SODIUM LEVEL 143 MMOL/L (136-145); TOTAL PROTEIN 6.3 G/DL (5.7-8.2); TRIGLYCERIDES LEVEL 121 MG/DL (<150)
[2022-11-10 11:59] LABS: CREATININE, URINE 261.8 MG/DL
== END ==
LOC: M PLALAB 08:48
PROVIDERS: ATTEND Student in an Organized Health Care Education/Training Program
DX: E11.8 Type 2 diabetes mellitus with unspecified complications (principal); F17.200 Nicotine dependence, unspecified, uncomplicated

== ENCOUNTER → 2022-11-21 | Outpatient (CLI) | payer OTHER ==
[2022-11-21 17:28] LABS: FREE T4 1.12 NG/DL (0.89-1.76)
[2022-11-21 17:30] LABS: THYROID STIMULATING HORMONE 0.468 uIU/ML (0.55-4.78)
== END ==
LOC: M PLALAB 13:55
PROVIDERS: ATTEND Student in an Organized Health Care Education/Training Program
DX: Z13.29 Encounter for screening for other suspected endocrine disorder (principal)

== ENCOUNTER → 2022-11-21 | Outpatient (CLI) | payer OTHER | LOC: M WHC 14:14 | PROVIDERS: ATTEND Student in an Organized Health Care Education/Training Program | DX: Z12.39 Encounter for other screening for malignant neoplasm of breast (principal) ==

== ENCOUNTER → 2023-04-10 | Outpatient (REF) | payer OTHER ==
[~2023-04-10] MED LIST changes: -GABA-283 PO; +GABA-284 PO; -ROPI0.5T3 PO; +ROPI0.5T33 PO
== END ==
LOC: M SFHCPLAZ 12:12
PROVIDERS: ATTEND Family Medicine
DX: Z53.9 Procedure and treatment not carried out, unspecified reason (principal); E11.8 Type 2 diabetes mellitus with unspecified complications; E05.90 Thyrotoxicosis, unspecified without thyrotoxic crisis or storm

== ENCOUNTER → 2023-04-10 | Outpatient (CLI) | payer OTHER ==
[2023-04-10 16:08] LABS: HEMOGLOBIN A1c 6.5 % (4.0-6.0)
[2023-04-10 16:20] LABS: FREE T4 1.08 NG/DL (0.89-1.76); THYROID STIMULATING HORMONE 1.257 uIU/ML (0.55-4.78)
== END ==
LOC: M PLALAB 12:33
PROVIDERS: ATTEND Student in an Organized Health Care Education/Training Program
DX: E11.8 Type 2 diabetes mellitus with unspecified complications (principal); E05.90 Thyrotoxicosis, unspecified without thyrotoxic crisis or storm

== ENCOUNTER → 2023-05-01 | Outpatient (REF) | payer OTHER | LOC: M SFHCPLAZ 09:46 | PROVIDERS: ATTEND Student in an Organized Health Care Education/Training Program | DX: N89.8 Other specified noninflammatory disorders of vagina (principal); R39.89 Other symptoms and signs involving the genitourinary system ==

== ENCOUNTER 2023-05-03 02:29 | Emergency (ER) | payer OTHER ==
[~2023-05-03] VITALS: Ht 157.5 cm; Wt 81.4 kg
[2023-05-03 05:32] VITALS: BP 138/68; TEMP 97.4; O2SAT 97
== END 2023-05-03 07:00 | disposition home or self-care (01) ==
LOC: EDBD 02:29 → M ED 02:29
DX: M79.605 Pain in left leg (principal); E11.9 Type 2 diabetes mellitus without complications; Z95.5 Presence of coronary angioplasty implant and graft; F17.200 Nicotine dependence, unspecified, uncomplicated; Z79.899 Other long term (current) drug therapy; Z79.84 Long term (current) use of oral hypoglycemic drugs; Z79.82 Long term (current) use of aspirin; Z88.0 Allergy status to penicillin; Z88.2 Allergy status to sulfonamides; Z88.5 Allergy status to narcotic agent; Z88.1 Allergy status to other antibiotic agents; Z91.030 Bee allergy status

== ENCOUNTER 2023-07-11 06:33 | Observation (INO) | payer OTHER ==
[~2023-07-11] VITALS: Ht 157.5 cm; Wt 81.8 kg
[~2023-07-11 06:33] MED LIST changes: -SIMV40TA20; +SIMV40TA20 PO; -VENTAER; +VENTAER INH
[2023-07-11] MEDS ORDERED: NS 1,000 ML IV ONE (07:00)
[2023-07-11] MEDS ORDERED: MORPHINE 4 MG/ML 1ML VIAL IV ONE (07:00)
[2023-07-11] MEDS ORDERED: IPRATROPIUM 0.5MG/ALBUTEROL 2.5MG INH SOL UD 3ML (DUONEB) NEB ONE ×3 (07:35→11:20)
[2023-07-11 07:57] LABS: BASO # 0.1 10^3/uL (0.0-0.2); BASO % 0.8 % (0.0-1.0); EOS # 0.1 10^3/uL (0.0-0.5); EOS % 0.8 % (0.0-3.0); HEMATOCRIT 44.4 % (36.0-47.0); LYMPH # 1.6 10^3/uL (1.5-5.0); LYMPH % 21.7 % (24.0-44.0); MEAN CORPUSCULAR HEMOGLOBIN 29.7 pg (27.0-33.0); MEAN CORPUSCULAR HGB CONC 31.5 g/dl (32.0-36.5); MEAN CORPUSCULAR VOLUME 94.3 fl (80.0-96.0); MONO # 0.6 10^3/uL (0.0-0.8); MONO % 8.8 % (2.0-8.0); NEUTROPHILS # 4.8 10^3/uL (1.5-8.5); NEUTROPHILS % 67.5 % (36.0-66.0); PLATELET COUNT, AUTOMATED 171 10^3/uL (150-450); RED BLOOD COUNT 4.71 10^6/uL (4.00-5.40); WHITE BLOOD COUNT 7.2 10^3/uL (4.0-10.0)
[2023-07-11 08:23] LABS: BLOOD UREA NITROGEN 15 MG/DL (9-23); CALCIUM LEVEL 8.5 MG/DL (8.3-10.6); CARBON DIOXIDE LEVEL 27 MMOL/L (20-31); CHLORIDE LEVEL 108 MMOL/L (98-107); CK-MB VALUE MASS < 1.0 NG/ML (<3.6); CPK CREATINE PHOSPHOKINASE 48 U/L (34-145); CREATININE FOR GFR 0.78 MG/DL (0.55-1.30); GLOMERULAR FILTRATION RATE > 60.0 (>45); GLUCOSE, FASTING 170 MG/DL (74-106); MB/CK RELATIVE INDEX 2.08 (< OR =4); SODIUM LEVEL 140 MMOL/L (136-145)
[2023-07-11 08:33] LABS: ABG BASE EXCESS -5.3 (-2.0-2.0); ABG HCO3 21.9 MMOL/L (22.0-26.0); ABG O2 SATURATION 97.7 % (95.0-99.0); ABG PARTIAL PRESSURE CO2 49.4 mmHg (35.0-45.0); ABG PARTIAL PRESSURE O2 111.4 mmHg (75.0-100.0); ABG STANDARD HCO3 20.1 MMOL/L. (22.0-26.0); ABG TOTAL CO2 23.4 MMOL/L (23.0-31.0); ABG pH (ARTERIAL) 7.265 UNITS (7.350-7.450)
[2023-07-11] MEDS ORDERED: ISOVUE-370 76% 100ML VIAL As Ordered ONE (11:30)
[2023-07-11] MEDS ORDERED: methylPREDNISolone 125MG 2ML VIAL IV ONE (12:25)
[2023-07-11] MEDS ORDERED: MED REC IN PROGRESS XX SCH (13:20)
[2023-07-11] MEDS ORDERED: IPRATROPIUM 0.5MG/ALBUTEROL 2.5MG INH SOL UD 3ML (DUONEB) NEB PRN (13:35)
[2023-07-11] MEDS ORDERED: DEXTROSE 50% 50ML SYRINGE IV PRN (13:35)
[2023-07-11] MEDS ORDERED: GLUCOSE 4GM CHEW TABLET PO PRN (13:35)
[2023-07-11] MEDS ORDERED: GLUCAGON INJ 1MG VIAL SC PRN (13:35)
[2023-07-11] MEDS: IPRATROPIUM 0.5MG/ALBUTEROL 2.5MG INH SOL UD 3ML (DUONEB) NEB SCH ×2 (14:00→20:14)
[2023-07-11 14:45] VITALS: BP 175/89; TEMP 97.9; O2SAT 90
[2023-07-11] MEDS: ACETAMINOPHEN TAB 650MG DOSE (2X325MG) PO PRN ×2 (14:52→21:07)
[2023-07-11] MEDS: guaiFENesin 200 MG TAB PO PRN ×2 (14:53→19:55)
[2023-07-11] MEDS ORDERED: METF10004 PO (16:22)
[2023-07-11] MEDS ORDERED: OMEP-173 PO (16:23)
[2023-07-11] MEDS ORDERED: ROPI0.5T33 PO (16:24)
[2023-07-11] MEDS ORDERED: TRAZ-252 PO (16:25)
[2023-07-11] MEDS ORDERED: TRUL10IN SQ (16:38)
[2023-07-11] MEDS ORDERED: GLIP2.5T6 PO (16:38)
[2023-07-11] MEDS ORDERED: HOME MED LIST COMPLETE! XX SCH (16:50)
[2023-07-11] MEDS: CLOPIDOGREL 75 MG TAB PO SCH (17:03)
[2023-07-11] MEDS: INSULIN LISPRO (NovoLOG) PER UNIT SC SCH (17:04)
[2023-07-11 20:41] VITALS: BP 126/60; TEMP 97.5; O2SAT 90
[2023-07-11] MEDS ORDERED: INSULIN LISPRO (NovoLOG) PER UNIT SC SCH (21:00)
[2023-07-11] MEDS: methylPREDNISolone 40MG 1ML VIAL IV SCH (21:08)
[2023-07-11] MEDS: HEPARIN SOD (PORCINE) 5000UNITS/ML 1ML VIAL/SYRINGE SC SCH (21:08)
[2023-07-12 01:54] VITALS: O2SAT 93
[2023-07-12] MEDS: IPRATROPIUM 0.5MG/ALBUTEROL 2.5MG INH SOL UD 3ML (DUONEB) NEB SCH ×2 (01:58→07:23)
[2023-07-12 05:47] LABS: HEMATOCRIT 43.9 % (36.0-47.0); HEMOGLOBIN 14.4 g/dl (12.0-15.5); MEAN CORPUSCULAR HEMOGLOBIN 30.1 pg (27.0-33.0); MEAN CORPUSCULAR HGB CONC 32.8 g/dl (32.0-36.5); MEAN CORPUSCULAR VOLUME 91.6 fl (80.0-96.0); PLATELET COUNT, AUTOMATED 162 10^3/uL (150-450); RED BLOOD COUNT 4.79 10^6/uL (4.00-5.40); WHITE BLOOD COUNT 6.5 10^3/uL (4.0-10.0)
[2023-07-12] MEDS: guaiFENesin 200 MG TAB PO PRN (05:51)
[2023-07-12] MEDS: HEPARIN SOD (PORCINE) 5000UNITS/ML 1ML VIAL/SYRINGE SC SCH (05:51)
[2023-07-12 06:12] LABS: BLOOD UREA NITROGEN 16 MG/DL (9-23); CALCIUM LEVEL 8.7 MG/DL (8.3-10.6); CARBON DIOXIDE LEVEL 26 MMOL/L (20-31); CHLORIDE LEVEL 109 MMOL/L (98-107); CREATININE FOR GFR 0.63 MG/DL (0.55-1.30); GLOMERULAR FILTRATION RATE > 60.0 (>45); GLUCOSE, FASTING 251 MG/DL (74-106); MAGNESIUM LEVEL 1.8 MG/DL (1.8-2.4); POTASSIUM SERUM 4.2 MMOL/L (3.5-5.1); SODIUM LEVEL 141 MMOL/L (136-145)
[2023-07-12 06:39] VITALS: BP 145/81; TEMP 97.2; O2SAT 96
[2023-07-12] MEDS: methylPREDNISolone 40MG 1ML VIAL IV SCH (08:33)
[2023-07-12] MEDS: CLOPIDOGREL 75 MG TAB PO SCH (08:33)
[2023-07-12] MEDS: INSULIN LISPRO (NovoLOG) PER UNIT SC SCH (08:35)
[2023-07-12] MEDS ORDERED: ASPIRIN 81MG ENTERIC TABLET PO SCH (09:00)
[2023-07-12] MEDS ORDERED: CYCLOBENZAPRINE 10MG TABLET PO SCH (09:00)
[2023-07-12] MEDS ORDERED: GABAPENTIN 400MG CAP PO SCH (09:00)
[2023-07-12] MEDS ORDERED: OMEPRAZOLE 20MG CAP PO SCH (09:00)
[2023-07-12] MEDS ORDERED: SIMVASTATIN 40 MG TAB PO SCH (09:00)
[2023-07-12] MEDS ORDERED: PRED50TA PO (09:04)
[2023-07-12] MEDS ORDERED: GUAI20TA PO (09:04)
[2023-07-12 09:08] VITALS: O2SAT 89
[2023-07-12] MEDS ORDERED: traZODone 50 MG TAB PO SCH (21:00)
[2023-07-12] MEDS ORDERED: rOPINIRole 0.25 MG TAB(REQUIP) PO SCH (21:00)
== END 2023-07-12 10:25 | disposition home or self-care (01) ==
LOC: M ED 06:33 → M ED INP 13:35 → M MS5PR 14:45
PROVIDERS: ADMIT Family Medicine; ATTEND Family Medicine
DX: J44.1 Chronic obstructive pulmonary disease with (acute) exacerbation (principal); R09.02 Hypoxemia; R50.9 Fever, unspecified; J45.909 Unspecified asthma, uncomplicated; R06.02 Shortness of breath; E11.9 Type 2 diabetes mellitus without complications; K21.9 Gastro-esophageal reflux disease without esophagitis; E78.5 Hyperlipidemia, unspecified; F32.A Depression, unspecified; F41.9 Anxiety disorder, unspecified; F17.210 Nicotine dependence, cigarettes, uncomplicated; Z95.820 Peripheral vascular angioplasty status with implants and grafts; Z88.0 Allergy status to penicillin; Z88.2 Allergy status to sulfonamides; Z88.5 Allergy status to narcotic agent; Z91.030 Bee allergy status; Z79.899 Other long term (current) drug therapy; Z79.02 Long term (current) use of antithrombotics/antiplatelets; Z79.82 Long term (current) use of aspirin; Z79.84 Long term (current) use of oral hypoglycemic drugs; Z79.52 Long term (current) use of systemic steroids; Z20.822 Contact with and (suspected) exposure to COVID-19
CPT/HCPCS: 36415; 36600; 71045; 71275; 80048; 82550; 82553; 82803; 83605; 83735; 85025; 85027; 85379; 87040; 87486; 87581; 87633; 87798; 93005; 93041; 94640; 96372; 96374; 96375; 96376; 99285; J1815; J2920; J2930; Q9967

== ENCOUNTER → 2023-08-09 | Outpatient (CLI) | payer OTHER ==
[~2023-08-09] MED LIST changes: +GLIP2.5T6 PO; +GUAI20TA PO; +OMEP-173 PO; +PRED50TA PO; +TRUL10IN SQ
== END ==
LOC: M PLAIMG 10:41
PROVIDERS: ATTEND Student in an Organized Health Care Education/Training Program
DX: M25.511 Pain in right shoulder (principal)

== ENCOUNTER → 2023-08-10 | Outpatient (CLI) | payer OTHER ==
[2023-08-10 13:32] LABS: FREE T4 1.11 NG/DL (0.89-1.76); THYROID STIMULATING HORMONE 1.43 uIU/ML (0.55-4.78)
[2023-08-10 13:34] LABS: HEMOGLOBIN A1c 7.8 % (4.0-6.0)
== END ==
LOC: M PLALAB 12:07
PROVIDERS: ATTEND Student in an Organized Health Care Education/Training Program
DX: Z00.00 Encounter for general adult medical examination without abnormal findings (principal); E05.90 Thyrotoxicosis, unspecified without thyrotoxic crisis or storm

== ENCOUNTER → 2023-08-27 | Outpatient (CLI) | payer OTHER | LOC: M SOG 08:02 | PROVIDERS: ATTEND Physician Assistant | DX: M25.511 Pain in right shoulder (principal) ==

== ENCOUNTER 2023-09-28 08:37 | Outpatient (RCR) | payer OTHER | END 2023-09-30 | LOC: M PT 08:37 | PROVIDERS: ATTEND Physician Assistant | DX: M25.511 Pain in right shoulder (principal) ==

== ENCOUNTER 2023-10-10 12:33 | Outpatient (RCR) | payer OTHER | END 2023-10-30 | LOC: M PT 12:33 | PROVIDERS: ATTEND Physician Assistant | DX: M25.511 Pain in right shoulder (principal) ==

== ENCOUNTER 2023-10-23 00:15 | Emergency (ER) | payer OTHER ==
[~2023-10-23] VITALS: Ht 157.5 cm; Wt 79.6 kg
[2023-10-23 02:40] VITALS: TEMP 97.4
[2023-10-23 04:45] VITALS: O2SAT 93
[2023-10-23 05:00] VITALS: BP 121/55
== END 2023-10-23 05:25 | disposition home or self-care (01) ==
LOC: M ED 00:15
DX: E11.65 Type 2 diabetes mellitus with hyperglycemia (principal); I10 Essential (primary) hypertension; K21.9 Gastro-esophageal reflux disease without esophagitis; E78.5 Hyperlipidemia, unspecified; Z79.82 Long term (current) use of aspirin; Z79.4 Long term (current) use of insulin; Z79.899 Other long term (current) drug therapy; Z88.0 Allergy status to penicillin; Z88.2 Allergy status to sulfonamides; Z88.5 Allergy status to narcotic agent; Z88.1 Allergy status to other antibiotic agents; Z91.030 Bee allergy status

== ENCOUNTER 2023-11-29 12:45 | Outpatient (RCR) | payer OTHER ==
[~2023-11-29 12:45] MED LIST changes: +DOXY-323 PO; -DOXY-443 PO
== END 2023-11-30 ==
LOC: M PT 12:45
PROVIDERS: ATTEND Physician Assistant
DX: M25.511 Pain in right shoulder (principal)

== ENCOUNTER 2023-12-06 14:19 | Outpatient (RCR) | payer OTHER | END 2023-12-30 | LOC: M PT 14:19 | PROVIDERS: ATTEND Physician Assistant | DX: M25.511 Pain in right shoulder (principal) ==

== ENCOUNTER → 2023-12-06 | Outpatient (CLI) | payer OTHER ==
[2023-12-06 11:36] LABS: ALBUMIN 3.2 G/DL (3.2-5.2); ALKALINE PHOSPHATASE 51 U/L (46-116); ALT/SGPT 19 U/L (7.0-40); AST/SGOT 24 U/L (<34); BILIRUBIN,TOTAL 0.5 MG/DL (0.3-1.2); BLOOD UREA NITROGEN 14 MG/DL (9-23); CALCIUM LEVEL 8.9 MG/DL (8.3-10.6); CARBON DIOXIDE LEVEL 26 MMOL/L (20-31); CHLORIDE LEVEL 111 MMOL/L (98-107); CHOLESTEROL LEVEL 150 MG/DL (<200); CHOLESTEROL RISK RATIO 3.39 (<5); CREATININE FOR GFR 0.65 MG/DL (0.55-1.30); GLOMERULAR FILTRATION RATE > 60.0 (>45); GLUCOSE, FASTING 106 MG/DL (74-106); HDL CHOLESTEROL 44.2 MG/DL (>40); LDL CHOLESTEROL 85.6 MG/DL (<100); NON-HDL-C 105.8 MG/DL; POTASSIUM SERUM 4.9 MMOL/L (3.5-5.1); SODIUM LEVEL 142 MMOL/L (136-145); TOTAL PROTEIN 6.3 G/DL (5.7-8.2); TRIGLYCERIDES LEVEL 101 MG/DL (<150)
[2023-12-06 11:38] LABS: HEMOGLOBIN A1c 6.4 % (4.0-6.0)
== END ==
LOC: M PLALAB 10:27
PROVIDERS: ATTEND Student in an Organized Health Care Education/Training Program
DX: E11.40 Type 2 diabetes mellitus with diabetic neuropathy, unspecified (principal)

== ENCOUNTER 2024-01-29 21:33 | Emergency (ER) | payer OTHER ==
[~2024-01-29] VITALS: Ht 157.5 cm; Wt 81.6 kg
[2024-01-29 21:34] VITALS: BP 163/97; TEMP 98; O2SAT 95
[2024-01-29 23:04] LABS: BASO # 0.1 10^3/uL (0.0-0.2); BASO % 0.8 % (0.0-1.0); EOS % 0.5 % (0.0-3.0); HEMATOCRIT 47.2 % (36.0-47.0); HEMOGLOBIN 14.6 g/dl (12.0-15.5); LYMPH % 11.5 % (24.0-44.0); MEAN CORPUSCULAR HEMOGLOBIN 26.6 pg (27.0-33.0); MEAN CORPUSCULAR HGB CONC 30.9 g/dl (32.0-36.5); MONO # 0.5 10^3/uL (0.0-0.8); MONO % 5.5 % (2.0-8.0); NEUTROPHILS % 80.7 % (36.0-66.0); PLATELET COUNT, AUTOMATED 191 10^3/uL (150-450); RED BLOOD COUNT 5.49 10^6/uL (4.00-5.40); WHITE BLOOD COUNT 8.7 10^3/uL (4.0-10.0)
[2024-01-29 23:29] LABS: BLOOD UREA NITROGEN 18 MG/DL (9-23); CALCIUM LEVEL 8.1 MG/DL (8.3-10.6); CARBON DIOXIDE LEVEL 26 MMOL/L (20-31); CHLORIDE LEVEL 105 MMOL/L (98-107); CREATININE FOR GFR 0.78 MG/DL (0.55-1.30); GLOMERULAR FILTRATION RATE > 60.0 (>45); GLUCOSE, FASTING 194 MG/DL (74-106); POTASSIUM SERUM 4.7 MMOL/L (3.5-5.1); SODIUM LEVEL 137 MMOL/L (136-145)
== END 2024-01-30 00:56 | disposition left against medical advice (07) ==
LOC: M ED 21:33
DX: Z53.21 Procedure and treatment not carried out due to patient leaving prior to being seen by health care provider (principal)

== ENCOUNTER → 2024-06-04 | Outpatient (REF) | payer OTHER ==
[~2024-06-04] MED LIST changes: -ADV250INH; +ADVA1AER9; -DOXY-323 PO; +DOXY-441 PO
[2024-06-04 12:42] LABS: HEMATOCRIT 46.7 % (36.0-47.0); HEMOGLOBIN 14.6 g/dl (12.0-15.5); MEAN CORPUSCULAR HEMOGLOBIN 29.8 pg (27.0-33.0); MEAN CORPUSCULAR HGB CONC 31.3 g/dl (32.0-36.5); MEAN CORPUSCULAR VOLUME 95.3 fl (80.0-96.0); PLATELET COUNT, AUTOMATED 220 10^3/uL (150-450); WHITE BLOOD COUNT 10.2 10^3/uL (4.0-10.0)
[2024-06-04 12:49] LABS: ALBUMIN 3.6 G/DL (3.2-5.2); ALKALINE PHOSPHATASE 49 U/L (35-104); ALT/SGPT 21 U/L (7.0-40); AST/SGOT 10 U/L (<34); BILIRUBIN,TOTAL 0.5 MG/DL (0.3-1.2); BLOOD UREA NITROGEN 16 MG/DL (9-23); CALCIUM LEVEL 9.6 MG/DL (8.3-10.6); CARBON DIOXIDE LEVEL 27 MMOL/L (20-31); CHLORIDE LEVEL 110 MMOL/L (98-107); CHOLESTEROL LEVEL 159 MG/DL (<200); CHOLESTEROL RISK RATIO 3.47 (<5); CREATININE FOR GFR 0.81 MG/DL (0.55-1.30); GLOMERULAR FILTRATION RATE > 60.0 (>45); GLUCOSE, FASTING 95 MG/DL (74-106); HDL CHOLESTEROL 45.8 MG/DL (>40); LDL CHOLESTEROL 83.4 MG/DL (<100); NON-HDL-C 113.2 MG/DL; POTASSIUM SERUM 4.5 MMOL/L (3.5-5.1); SODIUM LEVEL 144 MMOL/L (136-145); TOTAL PROTEIN 6.9 G/DL (5.7-8.2); TRIGLYCERIDES LEVEL 149 MG/DL (<150)
[2024-06-04 12:53] LABS: THYROID STIMULATING HORMONE 0.597 uIU/ML (0.55-4.78)
[2024-06-04 13:05] LABS: HEMOGLOBIN A1c 6.2 % (4.0-6.0)
[2024-06-04 13:06] LABS: INR 0.91; PARTIAL THROMBOPLASTIN TIME 27.9 SECONDS (24.8-34.2); PROTHROMBIN TIME 12.6 SECONDS (12.5-14.5)
== END ==
LOC: M SFHCPLAZ 10:55
PROVIDERS: ATTEND Family Medicine
DX: Z01.818 Encounter for other preprocedural examination (principal); E11.8 Type 2 diabetes mellitus with unspecified complications

== ENCOUNTER 2024-07-07 13:30 | Emergency (ER) | payer OTHER ==
[~2024-07-07] VITALS: Ht 157.5 cm; Wt 79.5 kg
[2024-07-07 13:36] VITALS: BP 145/81; TEMP 98.4; O2SAT 95
[2024-07-07 15:25] LABS: BASO # 0.1 10^3/uL (0.0-0.2); BASO % 0.5 % (0.0-1.0); EOS # 0.4 10^3/uL (0.0-0.5); EOS % 3.2 % (0.0-3.0); HEMATOCRIT 40.4 % (36.0-47.0); HEMOGLOBIN 13.4 g/dl (12.0-15.5); LYMPH # 2.7 10^3/uL (1.5-5.0); LYMPH % 21.4 % (24.0-44.0); MEAN CORPUSCULAR HEMOGLOBIN 30.5 pg (27.0-33.0); MEAN CORPUSCULAR HGB CONC 33.2 g/dl (32.0-36.5); MEAN CORPUSCULAR VOLUME 91.8 fl (80.0-96.0); MONO # 0.8 10^3/uL (0.0-0.8); MONO % 6.3 % (2.0-8.0); NEUTROPHILS # 8.7 10^3/uL (1.5-8.5); NEUTROPHILS % 68.3 % (36.0-66.0); PLATELET COUNT, AUTOMATED 229 10^3/uL (150-450); WHITE BLOOD COUNT 12.8 10^3/uL (4.0-10.0)
[2024-07-07 15:39] LABS: PROCALCITONIN 0.05 ng/ml
[2024-07-07 15:40] LABS: INR 0.93; PARTIAL THROMBOPLASTIN TIME 26.1 SECONDS (24.8-34.2); PROTHROMBIN TIME 12.8 SECONDS (12.5-14.5)
[2024-07-07 15:54] LABS: ALBUMIN 3.5 G/DL (3.2-5.2); ALKALINE PHOSPHATASE 55 U/L (35-104); ALT/SGPT 17 U/L (7.0-40); AST/SGOT 13 U/L (<34); BILIRUBIN,DIRECT 0.1 MG/DL (<0.4); BILIRUBIN,TOTAL 0.5 MG/DL (0.3-1.2); BLOOD UREA NITROGEN 19 MG/DL (9-23); CARBON DIOXIDE LEVEL 28 MMOL/L (20-31); CHLORIDE LEVEL 108 MMOL/L (98-107); CREATININE FOR GFR 0.77 MG/DL (0.55-1.30); GLOMERULAR FILTRATION RATE > 60.0 (>45); GLUCOSE, FASTING 175 MG/DL (74-106); POTASSIUM SERUM 4.5 MMOL/L (3.5-5.1); SODIUM LEVEL 143 MMOL/L (136-145)
[2024-07-07 16:42] LABS: ERYTHROCYTE SEDIMENTATION RATE 44 mm/hr (0-30)
[2024-07-07] MEDS: cefTRIAXone SOD 1 GM in DEXTROSE 5% (D5W) ADV/MINI-BAG 50 ML IV ONE (17:50)
[2024-07-07] MEDS ORDERED: CEPH500C PO (19:20)
[2024-07-07] MEDS ORDERED: LIDO4CRE12 TOP (19:21)
[2024-07-07] MEDS: CEPHALEXIN 500 MG CAP PO ONE (19:32)
== END 2024-07-07 19:38 | disposition home or self-care (01) ==
LOC: M ED 13:30
DX: L03.116 Cellulitis of left lower limb (principal); Z48.812 Encounter for surgical aftercare following surgery on the circulatory system; Z95.1 Presence of aortocoronary bypass graft; I73.9 Peripheral vascular disease, unspecified; J44.9 Chronic obstructive pulmonary disease, unspecified; K21.9 Gastro-esophageal reflux disease without esophagitis; F31.9 Bipolar disorder, unspecified; F17.200 Nicotine dependence, unspecified, uncomplicated; Z79.82 Long term (current) use of aspirin; Z79.4 Long term (current) use of insulin; Z79.899 Other long term (current) drug therapy; Z88.0 Allergy status to penicillin; Z88.2 Allergy status to sulfonamides; Z88.5 Allergy status to narcotic agent; Z91.030 Bee allergy status
CPT/HCPCS: 76882; 80048; 80076; 83605; 84145; 85025; 85610; 85652; 85730; 86140; 87040; 96374; 99284; J0696

== ENCOUNTER → 2024-08-01 | Outpatient (CLI) | payer OTHER ==
[~2024-08-01] MED LIST changes: +CEPH500C PO; +LIDO4CRE12 TOP
== END ==
LOC: M RAD 14:57
PROVIDERS: ATTEND Physician Assistant
DX: M75.111 Incomplete rotator cuff tear or rupture of right shoulder, not specified as traumatic (principal); M19.011 Primary osteoarthritis, right shoulder

== ENCOUNTER 2024-09-01 07:19 | Inpatient (IN) | payer OTHER ==
[~2024-09-01] VITALS: Ht 157.5 cm; Wt 75.4 kg
[2024-09-01 11:34] LABS: VENOUS BASE EXCESS 0.1 (-2.0-2.0); VENOUS HCO3 26.7 MMOL/L (23.0-27.0); VENOUS O2 SATURATION 71.9 % (60.0-80.0); VENOUS PARTIAL PRESSURE CO2 50.2 mmHg (38.0-50.0); VENOUS PARTIAL PRESSURE O2 39.4 mmHg (30.0-50.0); VENOUS PH 7.343 UNITS (7.330-7.430); VENOUS TOTAL CO2 28.2 MMOL/L (24.0-28.0)
[2024-09-01 11:41] LABS: BASO # 0.1 10^3/uL (0.0-0.2); BASO % 0.5 % (0.0-1.0); EOS # 0.1 10^3/uL (0.0-0.5); EOS % 0.6 % (0.0-3.0); HEMATOCRIT 44.9 % (36.0-47.0); HEMOGLOBIN 14.3 g/dl (12.0-15.5); LYMPH # 1.8 10^3/uL (1.5-5.0); LYMPH % 17.5 % (24.0-44.0); MEAN CORPUSCULAR HGB CONC 31.8 g/dl (32.0-36.5); MEAN CORPUSCULAR VOLUME 94.1 fl (80.0-96.0); MONO % 9.4 % (2.0-8.0); NEUTROPHILS # 7.3 10^3/uL (1.5-8.5); NEUTROPHILS % 71.6 % (36.0-66.0); PLATELET COUNT, AUTOMATED 231 10^3/uL (150-450); RED BLOOD COUNT 4.77 10^6/uL (4.00-5.40); WHITE BLOOD COUNT 10.1 10^3/uL (4.0-10.0)
[2024-09-01] MEDS: ACETAMINOPHEN 500 MG TAB PO ONE (12:18)
[2024-09-01 12:47] LABS: INR 0.9; PROTHROMBIN TIME 12.5 SECONDS (12.5-14.5)
[2024-09-01] MEDS: IPRATROPIUM 0.5MG/ALBUTEROL 2.5MG INH SOL UD 3ML (DUONEB) NEB ONE (12:54)
[2024-09-01 13:11] LABS: THYROID STIMULATING HORMONE 0.421 uIU/ML (0.55-4.78)
[2024-09-01 13:30] LABS: CK-MB VALUE MASS < 1.0 NG/ML (<3.6)
[2024-09-01 13:35] LABS: BLOOD UREA NITROGEN 18 MG/DL (9-23); CALCIUM LEVEL 8.7 MG/DL (8.3-10.6); CARBON DIOXIDE LEVEL 25 MMOL/L (20-31); CHLORIDE LEVEL 109 MMOL/L (98-107); CPK CREATINE PHOSPHOKINASE 60 U/L (34-145); CREATININE FOR GFR 0.75 MG/DL (0.55-1.30); GLOMERULAR FILTRATION RATE > 60.0 (>45); GLUCOSE, FASTING 103 MG/DL (74-106); MAGNESIUM LEVEL 1.8 MG/DL (1.8-2.4); MB/CK RELATIVE INDEX 1.66 (< OR =4); POTASSIUM SERUM 5.1 MMOL/L (3.5-5.1); SODIUM LEVEL 141 MMOL/L (136-145)
[2024-09-01] MEDS: NS (Normal Saline) 0.9% 1,000 ML IV ONE (14:08)
[2024-09-01] MEDS ORDERED: MOM 30ML SUSPENSION UDC PO PRN (14:45)
[2024-09-01] MEDS ORDERED: MAALOX 30 ML SUSP *UDC PO PRN (14:45)
[2024-09-01] MEDS: methylPREDNISolone 40MG 1ML VIAL IV ONE (15:05)
[2024-09-01] MEDS ORDERED: HOME MED LIST COMPLETE! XX SCH (15:45)
[2024-09-01] MEDS ORDERED: CLOP75TA99 PO (15:45)
[2024-09-01] MEDS ORDERED: ROPI5TAB19 PO (15:45)
[2024-09-01] MEDS ORDERED: FLUT1INH2 INH (15:45)
[2024-09-01] MEDS: IPRATROPIUM 0.5MG/ALBUTEROL 2.5MG INH SOL UD 3ML (DUONEB) NEB SCH (16:41)
[2024-09-01 17:50] VITALS: BP 157/73; TEMP 97.3; O2SAT 94
[2024-09-01] MEDS: REMDESIVIR 200 MG in NS 250 ML IV ONE (18:30)
[2024-09-01] MEDS: ACETAMINOPHEN 325 MG TAB PO PRN (18:34)
[2024-09-01 19:30] VITALS: BP 140/78; TEMP 103.5; O2SAT 96
[2024-09-01] MEDS: BUDESONIDE 0.5 MG/2 ML INHALATION SUSPENSION NEB SCH (19:41)
[2024-09-01] MEDS: guaiFENesin ER TABLET 600 MG TAB PO SCH (20:40)
[2024-09-01] MEDS: GABAPENTIN 400MG CAP PO SCH (20:40)
[2024-09-01] MEDS: FLUTICASONE PROP 0.05% NASAL SPRAY 16 GM (FLONASE) NARES SCH (20:40)
[2024-09-01] MEDS: CYCLOBENZAPRINE 10MG TABLET PO SCH (20:41)
[2024-09-01] MEDS: rOPINIRole 0.25 MG TAB(REQUIP) PO SCH (20:41)
[2024-09-01] MEDS: IBUPROFEN 800 MG TAB PO ONE (20:41)
[2024-09-01] MEDS: traZODone 50 MG TAB PO SCH (20:44)
[2024-09-01 21:52] VITALS: TEMP 99.1
[2024-09-02] MEDS: methylPREDNISolone 40MG 1ML VIAL IV SCH (03:18)
[2024-09-02 03:20] VITALS: BP 109/51; TEMP 97; O2SAT 89
[2024-09-02] MEDS ORDERED: DEXTROSE 50% 50ML SYRINGE IV PRN (05:00)
[2024-09-02] MEDS ORDERED: GLUCAGON INJ 1MG VIAL SC PRN (05:00)
[2024-09-02] MEDS ORDERED: GLUCOSE 4 GM CHEW PO PRN (05:00)
[2024-09-02 06:16] LABS: BLOOD UREA NITROGEN 16 MG/DL (9-23); CALCIUM LEVEL 8.5 MG/DL (8.3-10.6); CARBON DIOXIDE LEVEL 24 MMOL/L (20-31); CHLORIDE LEVEL 111 MMOL/L (98-107); GLOMERULAR FILTRATION RATE > 60.0 (>45); GLUCOSE, FASTING 149 MG/DL (74-106); SODIUM LEVEL 143 MMOL/L (136-145)
[2024-09-02] MEDS: LevoFLOXacin 750 MG TABLET PO SCH (08:26)
[2024-09-02] MEDS: ENOXAPARIN 40MG/0.4ML SYRINGE (J1650 PER 10MG) SC SCH (08:26)
[2024-09-02] MEDS: INSULIN LISPRO (NovoLOG) PER UNIT SC SCH (08:27)
[2024-09-02] MEDS: ASPIRIN 81MG ENTERIC TABLET PO SCH (08:27)
[2024-09-02] MEDS: CLOPIDOGREL 75 MG TAB PO SCH (08:27)
[2024-09-02 09:17] LABS: HEMATOCRIT 41.2 % (36.0-47.0); HEMOGLOBIN 13.2 g/dl (12.0-15.5); MEAN CORPUSCULAR HEMOGLOBIN 30.1 pg (27.0-33.0); MEAN CORPUSCULAR VOLUME 93.8 fl (80.0-96.0); PLATELET COUNT, AUTOMATED 236 10^3/uL (150-450); RED BLOOD COUNT 4.39 10^6/uL (4.00-5.40); WHITE BLOOD COUNT 9.3 10^3/uL (4.0-10.0)
[2024-09-02 12:00] VITALS: BP 112/53; TEMP 97.3; O2SAT 92
[2024-09-02] MEDS ORDERED: LEVO75TAB PO (12:58)
[2024-09-02] MEDS ORDERED: PRED10TA2 PO (12:58)
[2024-09-02] MEDS ORDERED: REMDESIVIR 100 MG in NS 100 ML IV SCH (17:00)
[2024-09-02] MEDS ORDERED: INSULIN LISPRO (NovoLOG) PER UNIT SC SCH (21:00)
== END 2024-09-02 14:08 | disposition home or self-care (01) | DRG 137 ==
LOC: M ED 07:19 → EDBD 07:19 → M ED INP 14:43 → M MSPAV 17:31
PROVIDERS: ADMIT Student in an Organized Health Care Education/Training Program; ATTEND Student in an Organized Health Care Education/Training Program
PROC: B246ZZZ Ultrasonography of Right and Left Heart (ICD-10-PCS; principal; 2024-09-01)
PROC: XW033E5 Introduction of Remdesivir Anti-infective into Peripheral Vein, Percutaneous Approach, New Technology Group 5 (ICD-10-PCS; 2024-09-01)
DX: U07.1 COVID-19 (principal); J44.1 Chronic obstructive pulmonary disease with (acute) exacerbation; E11.51 Type 2 diabetes mellitus with diabetic peripheral angiopathy without gangrene; K76.0 Fatty (change of) liver, not elsewhere classified; J45.909 Unspecified asthma, uncomplicated; K21.9 Gastro-esophageal reflux disease without esophagitis; M19.90 Unspecified osteoarthritis, unspecified site; F32.A Depression, unspecified; F41.9 Anxiety disorder, unspecified; F17.200 Nicotine dependence, unspecified, uncomplicated; Z66 Do not resuscitate; Z79.84 Long term (current) use of oral hypoglycemic drugs; Z79.899 Other long term (current) drug therapy; Z95.820 Peripheral vascular angioplasty status with implants and grafts; Z88.0 Allergy status to penicillin; Z88.1 Allergy status to other antibiotic agents; Z88.2 Allergy status to sulfonamides; Z88.5 Allergy status to narcotic agent; Z91.030 Bee allergy status; Z90.49 Acquired absence of other specified parts of digestive tract

== ENCOUNTER → 2024-10-02 | Outpatient (CLI) | payer OTHER, MEDICAID ==
[~2024-10-02] MED LIST changes: +CLOP75TA99 PO; +FLUT1INH2 INH; +GLIP2.5T46 PO; -GLIP2.5T6 PO; +LEVO75TAB PO; +PRED10TA2 PO; +ROPI5TAB19 PO
== END ==
LOC: M SOG 07:16
PROVIDERS: ATTEND Physician Assistant
DX: M19.011 Primary osteoarthritis, right shoulder (principal); M75.100 Unspecified rotator cuff tear or rupture of unspecified shoulder, not specified as traumatic

== ENCOUNTER → 2025-03-12 | Outpatient (CLI) | payer OTHER ==
[~2025-03-12] MED LIST changes: -PRED50TA PO; +PRED50TA57 PO
== END ==
LOC: M RAD 11:08
PROVIDERS: ATTEND Surgery
DX: I70.203 Unspecified atherosclerosis of native arteries of extremities, bilateral legs (principal)